=== PATIENT | male | born 1945 | race Caucasian/White ===

== ENCOUNTER 2020-01-30 00:24 | Outpatient (CLI) | payer MEDICARE, SELFPAY ==
[2020-01-30 17:00] LABS: SARS-CoV-2 RNA PCR Negative
== END 2020-01-30 00:25 | disposition home or self-care (01) ==
LOC: ANHCOVIDDT 00:25
PROVIDERS: PCP Family Medicine; Visit Provider Internal Medicine Gastroenterology
DX: Z20.828 Contact with and (suspected) exposure to other viral communicable diseases (principal); Z01.812 Encounter for preprocedural laboratory examination
CPT/HCPCS: 87635; C9803; U0003

== ENCOUNTER 2020-02-01 01:04 | Day surgery (SDC) | payer MEDICARE, SELFPAY ==
[2020-02-01 08:43] VITALS: BP 150/80; PULSE 74; RESP 20; TEMP 36.8; O2SAT 98; BMI 25.8
--- NOTE | 2020-02-01 08:49 | WPDANESEPPF ---
Anes - Initial Pre Proc Eval Procedure: Operation Date: 02/01/20 09:00 Proposed Procedures p Screening Colonoscopy - Roberto Cruz MD Date/Time: 02/01/20 08:49 Surgeon: Roberto Cruz MD Pre Op Diagnosis: Hx of Colon Polyps, Family Hx of Colon CA Patient Data Age: 74 Gender: M Height: Weight: Allergies Allergy/AdvReac Type Severity Reaction Status Date / Time No Known Allergies Allergy Unknown Verified 02/01/20 08:39 Home Medications Medication Instructions Recorded Confirmed Type aspirin 81 mg tablet,delayed 81 mg PO DAILY 07/04/19 02/01/20 History release fluticasone propionate 50 1 spray NASAL BID #54.6 ml 07/04/19 02/01/20 Rx mcg/actuation nasal spray,suspension levothyroxine 88 mcg tablet 88 mcg PO DAILY 07/04/19 02/01/20 History metformin 500 mg tablet,extended 1,500 mg PO QPM #270 tablet 08/05/19 02/01/20 Rx release 24 hr simvastatin 40 mg tablet 40 mg PO DAILY #90 tablet 10/31/19 02/01/20 Rx cyanocobalamin (vitamin B-12) 2,500 mcg SUBLINGUAL DAILY 01/25/20 02/01/20 History [Vitamin B-12] Patient hx anesthesia problems: none Family hx anesthesia problems: none PMF Family History Family History Mother Patient's mother is Father Patient's father is Social History Social History Smoking status: Never smoker Alcohol intake: never Gender identity (if verbalized by the patient): Male Sexual Orientation (if Verbalized by the Patient): Straight or Heterosexual Anes - Eval Final PreProcedure Day of Procedure 02/01/20 08:49 Patient weight: overweight Heart: regular rate and rhythm Lungs: clear to auscultation Airway: Mallampati scale class II Neurological: alert and oriented Last oral intake: >/= 8 hours ASA classification: III Emergent: no Anesthetic plan: proceed Anesthesia type and monitoring: general GIVS and standard monitoring Informed Consent: The patient's anesthetic plan and its attendant risks and benefits were discussed with the patient/family/POA. Questions were solicited and answers provided to the satisfaction of the patient/family/POA.
[2020-02-01 09:05] LABS: Glucose Point of Care 86 (65-105)
[2020-02-01] MEDS: LACTATED RINGERS 1,000 ML 150 ML IV CONT (09:06)
--- NOTE | 2020-02-01 09:12 | WPDGICN ---
Assessment and Plan Assessment and plan (1) History of colon polyps: Code(s): Z86.010 - Personal history of colonic polyps Status: Acute (2) Family history of colon cancer in father: Code(s): Z80.0 - Family history of malignant neoplasm of digestive organs Status: Acute Assessment and Plan: Patient presents today for screening colonoscopy. Plan is for high-fiber diet. Follow-up colonoscopy anticipated every 3-5 years. Further recommendations will be given after colonoscopy. GI Consult Note Consult date/time: 02/01/20 09:12 HPI: Philip Dc is a 74 year old male Seen in evaluation at the request of Dr. Franki Chan. Patient presents for colonoscopy. Patient has a prior history of having had colon polyps in the past. Family history is significant that his father had colon cancer. Patient states his current weight appetite bowel movements are normal. He denies abdominal pain. He denies bleeding. His bowel habits have been normal. Review of Systems Review of Systems: All systems reviewed & are unremarkable except as noted in HPI and below PMFSH Family History Family History Mother Patient's mother is Father Patient's father is Social History Social History Smoking status: Never smoker Alcohol intake: never Gender identity (if verbalized by the patient): Male Sexual Orientation (if Verbalized by the Patient): Straight or Heterosexual Meds Home Medications and Allergies Home Medications Medication Instructions Recorded Confirmed Type aspirin 81 mg tablet,delayed 81 mg PO DAILY 07/04/19 02/01/20 History release fluticasone propionate 50 1 spray NASAL BID #54.6 ml 07/04/19 02/01/20 Rx mcg/actuation nasal spray,suspension levothyroxine 88 mcg tablet 88 mcg PO DAILY 07/04/19 02/01/20 History metformin 500 mg tablet,extended 1,500 mg PO QPM #270 tablet 08/05/19 02/01/20 Rx release 24 hr simvastatin 40 mg tablet 40 mg PO DAILY #90 tablet 10/31/19 02/01/20 Rx cyanocobalamin (vitamin B-12) 2,500 mcg SUBLINGUAL DAILY 01/25/20 02/01/20 History [Vitamin B-12] Allergies Allergy/AdvReac Type Severity Reaction Status Date / Time No Known Allergies Allergy Unknown Verified 02/01/20 08:39 Vital Signs Vital Signs - 24 hr 02/01/20 08:43 Temperature 36.8 C Pulse Rate 74 Respiratory Rate 20 Blood Pressure 150/80 H Pulse Oximetry 98 Exam Narrative: Exam Narrative: Physical exam reveals patient to be alert. Vital signs are stable. HEENT exam unremarkable. He is anicteric. Lungs are clear to auscultation and percussion. Heart is without murmur or extra sounds. Abdominal exam bowel sounds are present soft nontender with no organomegaly. Digital external rectal exam normal.
[2020-02-01 09:48] VITALS: BP 100/62; PULSE 68; RESP 29; O2SAT 94
[2020-02-01 09:58] VITALS: BP 104/67; PULSE 66; RESP 29; O2SAT 97
[2020-02-01 10:08] VITALS: BP 127/81; PULSE 65; RESP 15; O2SAT 96
== END 2020-02-01 10:24 | disposition home or self-care (01) ==
PROVIDERS: PCP Family Medicine; Visit Provider Internal Medicine Gastroenterology
PROC: 0DJD8ZZ Inspection of Lower Intestinal Tract, Via Natural or Artificial Opening Endoscopic (ICD-10-PCS; CPT 45378; principal; 2020-02-01 09:00)
DX: Z12.11 Encounter for screening for malignant neoplasm of colon (principal); K64.8 Other hemorrhoids; Z86.010 Personal history of colon polyps; Z80.0 Family history of malignant neoplasm of digestive organs; Z79.82 Long term (current) use of aspirin
CPT/HCPCS: G0105; J2704; J7120

== ENCOUNTER 2020-06-07 07:53 | Outpatient (CLI) | payer MEDICARE, SELFPAY ==
--- NOTE | ~2020-06-07 | US_ITS ---
US arterial ankle brachial ind INDICATION: Type 2 diabetes mellitus without complications TECHNIQUE: Segmental pressures and plethysmographic and Doppler waveforms of the brachial and lower e xtremity arteries were obtained. COMPARISON: None. FINDINGS: Right and left brachial artery pressures of 133 mm Hg and 144 mm Hg, respectively, are concordant (no rmal difference <= 30 mmHg). The right ankle-brachial index (ANIVAL) is 1.15 (normal >= 0.9-1.0). The right great toe-brachial index (TBI) is 0.59 (normal >= 0.60). The left ANIVAL is 1.16. The left TBI is 0.67. IMPRESSION: 1. Mildly decreased right toe brachial index consistent with peripheral arterial disease. 2: Normal ankle-brachial indices. Reviewed, dictated and finalized at location B. IMPRESSION: 1. Mildly decreased right toe brachial index consistent with peripheral arteria l disease. 2: Normal ankle-brachial indices.
== END 2020-06-07 07:54 | disposition home or self-care (01) ==
PROVIDERS: PCP Family Medicine; Visit Provider Family Medicine
DX: E11.9 Type 2 diabetes mellitus without complications (principal); E78.2 Mixed hyperlipidemia; I73.9 Peripheral vascular disease, unspecified
CPT/HCPCS: 93922

== ENCOUNTER 2021-07-14 07:58 | Emergency (ER) | payer MEDICARE, SELFPAY ==
[2021-07-14] VITALS (14 sets, daily range): BP systolic 126–160; BP diastolic 88–98; PULSE 73–93; RESP 12–20; TEMP 36.2; O2SAT 93–98
--- NOTE | ~2021-07-14 | CT_ITS ---
EXAMINATION: CT abdomen pelvis wo con DATE: 07/14/2021 08:48 INDICATION: Right flank pain and hematuria TECHNIQUE: Computed tomography (CT) of the chest was performed without intravenous contrast. The dose -length product (DLP) was 343.35 mGy-cm. Automated exposure control and iterative reconstruction tech nique were employed. COMPARISON: None FINDINGS: Minimal dependent atelectasis is present in the lung bases. The heart size is normal. There is nodularity of the liver surface. Punctate calcifications in an otherwise normal spleen likely rep resent healed granulomatous disease. The pancreas, gallbladder, and adrenal glands are normal. The ki dneys are unremarkable. There is mild circumferential wall thickening of the urinary bladder no defin ite urolithiasis is identified. There is no hydronephrosis or hydroureter. There are changes of prost atectomy and pelvic lymph node dissection. No pathologically enlarged lymph nodes are identified. The re is no free intraperitoneal gas or evidence of bowel obstruction. The appendix is normal. There is severe lumbar spondylosis. There is a compression fracture of L2. There appears to be a right hydroce le. IMPRESSION: 1. No urolithiasis identified. Circumferential wall thickening of the urinary bladder could reflect c ystitis or chronic obstruction. Reviewed, dictated and finalized at location A. ER ROOM ATTENDANT IMPRESSION: 1. No urolithiasis identified. Circumferential wall thickening of the urinary b ladder could reflect cystitis or chronic obstruction.
--- NOTE | 2021-07-14 08:23 | ED.GENADULT ---
HPI - General Adult General Chief complaint: Urogenital-Male Stated complaint: hematuria Time Seen by Provider: 07/14/21 08:03 Source: patient, family and RN notes reviewed Limitations: no limitations History of Present Illness HPI narrative: Patient presents with hematuria and urine frequency started this morning and lower back pain more on the right side. Patient denies having similar symptoms, fever, chills, nausea, vomiting patient on baby aspirin once a day history of prostatectomy. Patient is fully vaccinated for COVID-19 including the booster dose Related Data Home Medications Medication Instructions Recorded Confirmed aspirin 81 mg tablet,delayed 81 mg PO DAILY 07/04/19 07/01/21 release cyanocobalamin (vitamin B-12) 2,500 mcg SUBLINGUAL DAILY 01/25/20 07/01/21 [Vitamin B-12] Allergies Allergy/AdvReac Type Severity Reaction Status Date / Time No Known Allergies Allergy Unknown Verified 07/14/21 08:08 Review of Systems Review of Systems: CONSTITUTIONAL: Denies fever, chills, or sweats. EYES: Denies visual changes, redness, or discharge. ENT: Denies rhinorrhea, congestion, sore throat, or otalgia. CARDIOVASCULAR: Denies chest pain, palpitations, or edema. RESPIRATORY: Denies cough or dyspnea. GASTROINTESTINAL: Denies abdominal pain, nausea, vomiting, or diarrhea. GENITOURINARY: Denies dysuria or hematuria. SKIN: Denies rash or itching. MUSCULOSKELETAL: Denies back pain, joint pain, or myalgia. NEUROLOGIC: Denies headache, numbness, or weakness. PSYCHIATRIC: Denies anxiety or depression. [facility] Past Medical History Medical History BMI 28.0-28.9,adult Cataracts, bilateral Change in stool Constipation Hypersomnia Polyp of colon Renal insufficiency (02/12/21) mild renal insufficiency with BUN 28 and creatinine 1.25 with GFR 55 on Type 2 diabetes mellitus with mild nonproliferative diabetic retinopathy without macular edema, bilateral (12/18/20) Dr. Fernandez Family History Family History Mother Patient's mother is Father Patient's father is Social History Social History Smoking status: Never smoker Alcohol intake: never Substance use: never Substance use type: does not use Gender identity (if verbalized by the patient): Male Sexual Orientation (if Verbalized by the Patient): Straight or Heterosexual Exam Narrative: General appearance: Well-developed, well-nourished Skin: Normal color Head: Normocephalic, nontraumatic Eyes: Clear conjunctiva ENT: Oropharynx normal, ears normal, nose normal Neck: Supple, nontender Chest and respiratory: Airway patent, no respiratory distress, no accessory muscle use Heart: Regular rate/rhythm Abdomen: Soft, nontender, no organomegaly, quiet bowel sounds Vascular: Normal peripheral pulses, normal capillary refill. Musculoskeletal: Normal range of motion, nontender back Neurologic: Alert and oriented ?3, SCIENCE LIAISON is normal as tested, no gross motor deficit Course Course Emergency Course: Stable Vital Signs Vital signs: Vital Signs Temperature 36.2 C L 07/14/21 08:06 Pulse Rate 93 07/14/21 08:06 Respiratory Rate 16 07/14/21 08:06 Pulse Oximetry 96 07/14/21 08:06 Temperature 36.2 C L 07/14/21 08:06 Pulse Rate 73 07/14/21 09:08 Respiratory Rate 14 07/14/21 09:00 Blood Pressure 141/88 H 07/14/21 09:08 Pulse Oximetry 94 07/14/21 09:08 Medical Decision Making MDM Narrative Medical decision making narrative: Hematuria. Labs, CT abdomen pel
[2021-07-14 08:29] LABS: Basophils Percent Auto 0.5 % (0.2-1.2); Eosinophils Absolute Auto 0.3 K/mm3 (0-0.3); Eosinophils Percent Auto 3.5 % (0-4.4); Hemoglobin 15.5 g/dL (14.0-18.0); Immature Granulocyte Absolute 0.02 K/mm3 (0.00-0.031); Immature Granulocyte Percent A 0.3 % (0-0.5); Lymphocytes Percent Auto 18.3 % (18.3-44.2); Mean Corpuscular HGB Conc 33.7 g/dl (32-36); Mean Corpuscular Volume 98.1 fl (80-100); Mean Platelet Volume 10.8 fl (7.4-10.4); Monocytes Absolute Auto 1.2 K/mm3 (0.1-0.6); Monocytes Percent Auto 15.4 % (2.6-8.5); Neutrophils Absolute Auto 4.8 K/mm3 (1.3-6.7); Platelet Count Result 264 k/mm3 (150-375); Red Blood Count 4.69 M/mm3 (4.6-6.20); Red Cell Distribution Width 13.9 % (11.5-14.5); White Blood Count 7.7 K/mm3 (4.5-10.0)
[2021-07-14 08:38] LABS: Alanine Aminotransferase 19 U/L (4-50); Albumin Level 4.3 g/dL (3.5-5.1); Alkaline Phosphatase 61 U/L (38-126); Anion Gap 7 mmol/L (8-16); Aspartate Amino Transferase 28 U/L (17-59); Bilirubin,Total 0.9 mg/dL (0.2-1.3); Blood Urea Nitrogen 19 mg/dL (9-20); Calcium 9.4 mg/dL (8.4-10.2); Carbon Dioxide 27 mmol/L (22-30); Chloride 105 mmol/L (98-107); Estimated CRCL calculation 52 ml/min; Estimated Glomerular Filt Rate > 60; Glucose 124 mg/dL (65-110); Potassium 4.3 mmol/L (3.4-5.0); Sodium 139 mmol/L (137-145)
[2021-07-14 08:43] LABS: Add Urine Microscopic? YES; Appearance Urine Turbid (Clear); Bilirubin Urine Negative (Negative); Blood Urine 3+ (Negative); Color Urine Red (Yellow); Glucose Urine UA 1+ mg/dL (Negative); Ketones Urine Trace mg/dL (Negative); Leukocyte Esterase Ur Negative LEU/UL (Negative); Nitrate Urine Negative (Negative); Protein Urine 2+ mg/dL (Negative); RBC Urine >75 /hpf (0-2); Specific Grav Ur 1.021 (1.001-1.035); Urobilinogen Urine Negative mg/dL (<2.0); WBC Clumps Urine Present /HPF; WBC Urine >75 /hpf
--- NOTE | 2021-07-14 08:46 | PC.NURSE ---
Pt to CT.
--- NOTE | 2021-07-14 09:34 | PC.NURSE ---
Dr. Davidson at bedside to discuss results with pt.
== END 2021-07-14 09:52 | disposition home or self-care (01) ==
PROVIDERS: Emergency Provider Emergency Medicine; PCP Family Medicine
DX: N39.0 Urinary tract infection, site not specified (principal); E11.3293 Type 2 diabetes mellitus with mild nonproliferative diabetic retinopathy without macular edema, bilateral; Z79.82 Long term (current) use of aspirin; Z86.010 Personal history of colon polyps; H26.9 Unspecified cataract; K74.60 Unspecified cirrhosis of liver; Z79.84 Long term (current) use of oral hypoglycemic drugs
CPT/HCPCS: 36415; 51700; 74176; 80053; 81001; 85025; 87077; 87086; 87186; 99283; 99284

== ENCOUNTER 2021-07-14 14:36 | Emergency (ER) | payer MEDICARE, SELFPAY ==
[2021-07-14 14:41] VITALS: BP 168/94; PULSE 105; RESP 16; TEMP 37; O2SAT 99
--- NOTE | 2021-07-14 15:26 | ED.GENADULT ---
HPI - General Adult General Chief complaint: Urogenital-Male Stated complaint: uti Time Seen by Provider: 07/14/21 14:49 Source: patient and family Mode of arrival: ambulatory Limitations: no limitations History of Present Illness HPI narrative: Patient came to the emergency room with inability to urinate for the last 6 hours. Patient was seen earlier today in our emergency room and was discharged with a diagnosis of urinary tract infection and hematuria. History of prostatectomy. Currently on baby aspirin once a day. Related Data Home Medications Medication Instructions Recorded Confirmed aspirin 81 mg tablet,delayed 81 mg PO DAILY 07/04/19 07/01/21 release cyanocobalamin (vitamin B-12) 2,500 mcg SUBLINGUAL DAILY 01/25/20 07/01/21 [Vitamin B-12] Allergies Allergy/AdvReac Type Severity Reaction Status Date / Time No Known Allergies Allergy Unknown Verified 07/14/21 08:08 Review of Systems Review of Systems: CONSTITUTIONAL: Denies fever, chills, or sweats. EYES: Denies visual changes, redness, or discharge. ENT: Denies rhinorrhea, congestion, sore throat, or otalgia. CARDIOVASCULAR: Denies chest pain, palpitations, or edema. RESPIRATORY: Denies cough or dyspnea. GASTROINTESTINAL: Denies abdominal pain, nausea, vomiting, or diarrhea. GENITOURINARY: Denies dysuria or hematuria. SKIN: Denies rash or itching. MUSCULOSKELETAL: Denies back pain, joint pain, or myalgia. NEUROLOGIC: Denies headache, numbness, or weakness. PSYCHIATRIC: Denies anxiety or depression. [facility] Past Medical History Medical History BMI 28.0-28.9,adult Cataracts, bilateral Change in stool Constipation Hypersomnia Polyp of colon Renal insufficiency (02/12/21) mild renal insufficiency with BUN 28 and creatinine 1.25 with GFR 55 on Type 2 diabetes mellitus with mild nonproliferative diabetic retinopathy without macular edema, bilateral (12/18/20) Dr. Fernandez Family History Family History Mother Patient's mother is Father Patient's father is Social History Social History Smoking status: Never smoker Alcohol intake: never Substance use: never Substance use type: does not use Gender identity (if verbalized by the patient): Male Sexual Orientation (if Verbalized by the Patient): Straight or Heterosexual Exam Narrative: General appearance: Well-developed, well-nourished, restless, anxious Skin: Normal color Head: Normocephalic, nontraumatic Eyes: Clear conjunctiva ENT: Oropharynx normal, ears normal, nose normal Neck: Supple, nontender Chest and respiratory: Airway patent, no respiratory distress, no accessory muscle use Heart: Regular rate/rhythm Abdomen: Soft, severe tenderness suprapubic, slightly distended Vascular: Normal peripheral pulses, normal capillary refill. Musculoskeletal: Normal range of motion, nontender back Neurologic: Alert and oriented ?3, NATURAL SCIENCES DEPARTMENT CHAIR is normal as tested, no gross motor deficit Course Course Emergency Course: Improving Vital Signs Vital signs: Vital Signs Temperature 37.0 C 07/14/21 14:41 Pulse Rate 105 H 07/14/21 14:41 Respiratory Rate 16 07/14/21 14:41 Blood Pressure 168/94 H 07/14/21 14:41 Pulse Oximetry 99 07/14/21 14:41 Temperature 37.0 C 07/14/21 14:41 Pulse Rate 105 H 07/14/21 14:41 Respiratory Rate 16 07/14/21 14:41 Blood Pressure 168/94 H 07/14/21 14:41 Pulse Oximetry 99 07/14/21 14:41 Medical Decision Making MDM Narrative Medical decision making narrative:
[2021-07-14 17:16] VITALS: BP 142/97; PULSE 88; RESP 16; O2SAT 97
== END 2021-07-14 17:18 | disposition home or self-care (01) ==
PROVIDERS: Emergency Provider Emergency Medicine; PCP Family Medicine
DX: R33.9 Retention of urine, unspecified (principal); E11.3293 Type 2 diabetes mellitus with mild nonproliferative diabetic retinopathy without macular edema, bilateral; H26.9 Unspecified cataract; Z90.79 Acquired absence of other genital organ(s); Z79.84 Long term (current) use of oral hypoglycemic drugs; Z86.010 Personal history of colon polyps
CPT/HCPCS: 51700; 99283

== ENCOUNTER 2021-07-15 16:20 | Emergency (ER) | payer MEDICARE, SELFPAY ==
[2021-07-15 17:11] VITALS: BP 203/108; PULSE 114; RESP 14; TEMP 37.1; O2SAT 95
--- NOTE | 2021-07-15 17:38 | ED.MALEGU ---
HPI - Male Genitourinary General Chief complaint: Urogenital-Male Stated complaint: Catheter issues. Time Seen by Provider: 07/15/21 17:15 Source: patient and family Mode of arrival: ambulatory Limitations: no limitations History of Present Illness HPI Narrative: Patient presented to the ED because of urine leaking around the Gaitan catheter. Not draining as usual. In the last 2 to 4 hours prior to arrival to the emergency room. Patient came to our emergency room yesterday and was diagnosed of urinary tract infection and hematuria. Patient came back 6-hour later with urine retention, three-way Gaitan catheter was placed, irrigated and then discharged home with clear urine output. Related Data Home Medications Medication Instructions Recorded Confirmed aspirin 81 mg tablet,delayed 81 mg PO DAILY 07/04/19 07/01/21 release cyanocobalamin (vitamin B-12) 2,500 mcg SUBLINGUAL DAILY 01/25/20 07/01/21 [Vitamin B-12] Allergies Allergy/AdvReac Type Severity Reaction Status Date / Time No Known Allergies Allergy Unknown Verified 07/15/21 18:10 Review of Systems Review of Systems: CONSTITUTIONAL: Denies fever, chills, or sweats. EYES: Denies visual changes, redness, or discharge. ENT: Denies rhinorrhea, congestion, sore throat, or otalgia. CARDIOVASCULAR: Denies chest pain, palpitations, or edema. RESPIRATORY: Denies cough or dyspnea. GASTROINTESTINAL: Denies abdominal pain, nausea, vomiting, or diarrhea. GENITOURINARY: Denies dysuria or hematuria. SKIN: Denies rash or itching. MUSCULOSKELETAL: Denies back pain, joint pain, or myalgia. NEUROLOGIC: Denies headache, numbness, or weakness. PSYCHIATRIC: Denies anxiety or depression. [facility] Past Medical History Medical History BMI 28.0-28.9,adult Cataracts, bilateral Change in stool Constipation Hypersomnia Polyp of colon Renal insufficiency (02/12/21) mild renal insufficiency with BUN 28 and creatinine 1.25 with GFR 55 on Type 2 diabetes mellitus with mild nonproliferative diabetic retinopathy without macular edema, bilateral (12/18/20) Dr. Fernandez Family History Family History Mother Patient's mother is Father Patient's father is Social History Social History Smoking status: Never smoker Alcohol intake: never Substance use: never Substance use type: does not use Gender identity (if verbalized by the patient): Male Sexual Orientation (if Verbalized by the Patient): Straight or Heterosexual Exam Narrative: General appearance: Well-developed, well-nourished Skin: Normal color Head: Normocephalic, nontraumatic Eyes: Clear conjunctiva ENT: Oropharynx normal, ears normal, nose normal Neck: Supple, nontender Chest and respiratory: Airway patent, no respiratory distress, no accessory muscle use Heart: Regular rate/rhythm Abdomen: Soft, tender suprapubic, no organomegaly, quiet bowel sounds Vascular: Normal peripheral pulses, normal capillary refill. Musculoskeletal: Normal range of motion, nontender back Neurologic: Alert and oriented ?3, TECHNOLOGY SPECIALIST is normal as tested, no gross motor deficit Urinary Catheter: Urinary Catheter: urine with clots and other (The Gaitan catheter was not draining, aspiration using a strange, showed little blood clots then the draining started flowing) Course Course Emergency Course: Improving Vital Signs Vital signs: Vital Signs Temperature 37.1 C 07/15/21 17:11 Pulse Rate 114 H 07/15/21 17:11 Respiratory Rate 14 07/15/21 17:11 Blood Pressu
[2021-07-15 18:10] VITALS: BP 145/76; PULSE 87; RESP 16; O2SAT 96
[2021-07-15 19:14] VITALS: BP 142/86; PULSE 83; RESP 16; O2SAT 97
== END 2021-07-15 19:14 | disposition home or self-care (01) ==
LOC: ANHED 18:38
PROVIDERS: Emergency Provider Emergency Medicine; PCP Family Medicine
DX: R33.9 Retention of urine, unspecified (principal); T83.091A Other mechanical complication of indwelling urethral catheter, initial encounter; E11.3293 Type 2 diabetes mellitus with mild nonproliferative diabetic retinopathy without macular edema, bilateral; Z86.010 Personal history of colon polyps; H26.9 Unspecified cataract; Z79.82 Long term (current) use of aspirin; Z79.84 Long term (current) use of oral hypoglycemic drugs
CPT/HCPCS: 99282

== ENCOUNTER 2021-11-23 06:45 | Emergency (ER) | payer MEDICARE, SELFPAY ==
[2021-11-23 06:54] VITALS: BP 152/80; PULSE 86; RESP 15; TEMP 36.2; O2SAT 97
[2021-11-23 06:59] VITALS: PULSE 81; RESP 19; O2SAT 96
--- NOTE | 2021-11-23 07:13 | ED.MALEGU ---
HPI - Male Genitourinary General Chief complaint: Urogenital-Male Stated complaint: uti Time Seen by Provider: 11/23/21 06:57 Source: patient History of Present Illness HPI Narrative: Patient presents with hematuria and dysuria. Patient reports his symptoms started yesterday and are a lot worse this morning so he came to the ER for evaluation. Reports a history of UTI several months ago and presented very similar to this. He denies any other abdominal pain nausea, vomiting, acute change in chronic back pain, diarrhea. Related Data Home Medications Medication Instructions Recorded Confirmed aspirin 81 mg tablet,delayed 81 mg PO DAILY 07/04/19 07/01/21 release cyanocobalamin (vitamin B-12) 2,500 mcg SUBLINGUAL DAILY 01/25/20 07/01/21 [Vitamin B-12] Allergies Allergy/AdvReac Type Severity Reaction Status Date / Time No Known Allergies Allergy Unknown Verified 07/15/21 18:10 Review of Systems Review of Systems: CONSTITUTIONAL: Denies fever, chills, or sweats. EYES: Denies visual changes, redness, or discharge. ENT: Denies rhinorrhea, congestion, sore throat, or otalgia. CARDIOVASCULAR: Denies chest pain, palpitations, or edema. RESPIRATORY: Denies cough or dyspnea. GASTROINTESTINAL: Denies abdominal pain, nausea, vomiting, or diarrhea. GENITOURINARY: Reports hematuria and dysuria SKIN: Denies rash or itching. MUSCULOSKELETAL: Denies back pain, joint pain, or myalgia. NEUROLOGIC: Denies headache, numbness, dizziness, or weakness. PSYCHIATRIC: Denies anxiety or depression. All systems reviewed & are unremarkable except as noted in HPI and below [facility] Past Medical History Medical History BMI 28.0-28.9,adult BMI 29.0-29.9,adult Cataracts, bilateral Change in stool Chronic low back pain without sciatica Constipation Hypersomnia Polyp of colon Renal insufficiency (02/12/21) mild renal insufficiency with BUN 28 and creatinine 1.25 with GFR 55 on Type 2 diabetes mellitus with mild nonproliferative diabetic retinopathy without macular edema, bilateral (12/18/20) Dr. Fernandez UTI (urinary tract infection) Family History Family History Mother Patient's mother is Father Patient's father is Social History Social History Smoking status: Never smoker Alcohol intake: never Substance use: never Substance use type: does not use Gender identity (if verbalized by the patient): Male Sexual Orientation (if Verbalized by the Patient): Straight or Heterosexual Exam Narrative: GENERAL: Well-appearing, well-nourished, and in no acute distress. HEAD: Normocephalic, atraumatic. EYES: PERRLA and EOMI. ENT: Nares clear, no rhinorrhea or epistaxis. Mucous membranes moist. NECK: Supple. No masses. No JVD ABDOMEN: Soft, nontender, nondistended. EXTREMITIES: Normal range of motion. No edema. SKIN: Warm, dry, no rash. NEURO: No focal deficits. Alert and oriented x3. PSYCH: Normal mood and affect. Course Reevaluation(s) Reevaluation #1: Patient resting comfortable results and plan reviewed with patient. Patient comfortable outpatient plan. Date: 11/23/21 Time: 07:57 Vital Signs Vital signs: Vital Signs Temperature 36.2 C L 11/23/21 06:54 Pulse Rate 86 11/23/21 06:54 Respiratory Rate 15 11/23/21 06:54 Blood Pressure 152/80 H 11/23/21 06:54 Pulse Oximetry 97 11/23/21 06:54 Temperature 36.2 C L 11/23/21 06:54 Pulse Rate 76 11/23/21 08:13 Respiratory Rate 16 11/23/21 08:13 Blood Pressure 132/98 H 11/23/21 08:13 Pulse Oximetry 95 11/23/21 08:13 MDM - Male Genitourinary MDM Narrative Medical decision making narrative: H&P as above, vss, pt looks clinically well, exam with nonacute abdomen, labs with UA concerning for infection, additional labs/img considered, sympto
--- NOTE | 2021-11-23 07:29 | PC.NURSE ---
Took report from mohinder James comfortable at this time.
[2021-11-23 07:47] LABS: Add Urine Microscopic? YES; Appearance Urine Cloudy (Clear); Bacteria Urine Trace /hpf; Bilirubin Urine Negative (Negative); Blood Urine 2+ (Negative); Color Urine Yellow (Yellow); Glucose Urine UA Negative (Negative); Ketones Urine Negative (Negative); Leukocyte Esterase Ur 2+ LEU/UL (Negative); Mucus Urine Few /lpf; Nitrate Urine Negative (Negative); Protein Urine 1+ mg/dL (Negative); RBC Urine 21-50 /hpf (0-2); Specific Grav Ur 1.025 (1.001-1.035); Urobilinogen Urine Negative mg/dL (<2.0); WBC Urine >75 /hpf
[2021-11-23 08:13] VITALS: BP 132/98; PULSE 76; RESP 16; O2SAT 95
== END 2021-11-23 08:15 | disposition home or self-care (01) ==
PROVIDERS: Emergency Provider Emergency Medicine; PCP Family Medicine
DX: N39.0 Urinary tract infection, site not specified (principal); E11.319 Type 2 diabetes mellitus with unspecified diabetic retinopathy without macular edema; N28.9 Disorder of kidney and ureter, unspecified; Z86.010 Personal history of colon polyps; Z79.84 Long term (current) use of oral hypoglycemic drugs; Z79.82 Long term (current) use of aspirin
CPT/HCPCS: 81001; 87077; 87086; 87186; 99283

== ENCOUNTER 2022-02-21 11:21 | Outpatient (CLI) | payer MEDICARE, SELFPAY ==
--- NOTE | 2022-02-21 11:30 | ECG_ITS ---
Measurements Intervals Jal Rate: 80 P: 24 OR: 116 QRS: -17 QRSD: 97 T: 62 QT: 354 QTc: 409 Interpretive Statements SINUS RHYTHM WITH SHORT OR INTERVAL INCOMPLETE RIGHT BUNDLE BRANCH BLOCK LOW QRS VOLTAGE IN LIMB LEADS INCOMPLETE RIGHT BUNDLE BRANCH BLOCK BASELINE ARTIFACT- I, II, III, AVR, AVL, AVF BORDERLINE ECG Electronically Signed On 02-21-2022 15:31:30 CDT by Nishant Jeff D.O.
== END 2022-02-21 11:22 | disposition home or self-care (01) ==
LOC: ANHSURGERY 11:24
PROVIDERS: PCP Family Medicine; Visit Provider Urology
DX: E78.2 Mixed hyperlipidemia (principal); I45.19 Other right bundle-branch block
CPT/HCPCS: 93005

== ENCOUNTER 2022-02-27 01:12 | Day surgery (SDC) | payer MEDICARE, SELFPAY ==
--- NOTE | 2022-02-05 08:13 | PM.HPGS ---
History of Present Illness History of Present Illness Consent: Risks, benefits, and alternatives have been discussed and questions answered. Patient agrees to proceed with procedure. Chief complaint: Split Urinary Stream Narrative: Philip Dc is a 76 year old male Who is status post open radical prostatectomy at [facility] in 1998. Recently he has developed obstructive voiding symptoms in a split urinary stream refractory to attempts at medical management. This is highly suggestive of urethral stricture and he presents for cystoscopy with urethral dilatation. He is aware the risk of this including, but not limited to, adverse cardiopulmonary events, postoperative hematuria, persistent irritable and/or obstructive voiding symptoms. Review of Systems Cardiovascular: Cardiovascular: Denies chest pain, Denies lightheadedness, Denies palpitations and Denies dyspnea Respiratory: Respiratory: Denies dyspnea Gastrointestinal: Gastrointestinal: Denies diarrhea, Denies nausea and Denies vomiting Genitourinary: Genitourinary: Denies hematuria and Denies dysuria Endocrine: Endocrine: Denies palpitations [facility] Past Medical History Medical History (Updated 02/05/22 @ 08:15 by Simon Ocampo MD) Alcoholism in recovery quit drinking 07/18/1983. BMI 28.0-28.9,adult BMI 29.0-29.9,adult Cataracts, bilateral Change in stool Chronic low back pain without sciatica Cirrhosis of liver (~06/2021) nodularity of the surface of the liver on CT of the abdomen and pelvis on 07/14/2021 with past history of alcoholism and normal liver function currently. Constipation Hypersomnia Overweight (BMI 25.0-29.9) Polyp of colon Renal insufficiency (02/12/21) mild renal insufficiency with BUN 28 and creatinine 1.25 with GFR 55 on . Normal renal function 01/20/2022 with BUN 18, creatinine 1.02, GFR 70 with urinalysis normal and urine microalbumin ratio of 9 on 01/20/2022. Type 2 diabetes mellitus with mild nonproliferative diabetic retinopathy without macular edema, bilateral (12/18/20) Dr. Fernandez UTI (urinary tract infection) Family History Family History Mother Patient's mother is Father Patient's father is Social History Social History Smoking status: Never smoker Alcohol intake: never Substance use: never Substance use type: does not use Gender identity (if verbalized by the patient): Male Sexual Orientation (if Verbalized by the Patient): Straight or Heterosexual Meds Home Medications and Allergies Home Medications Medication Instructions Recorded Confirmed Type aspirin 81 mg tablet,delayed 81 mg PO DAILY 07/04/19 01/27/22 History release (Adult Aspirin Regimen) cyanocobalamin (vitamin B-12) 2,500 mcg sublingual DAILY 01/25/20 01/27/22 History 2,500 mcg sublingual tablet (Vitamin B-12) azelastine 205.5 mcg (0.15 %) 1 spray intranasal BID PRN 12/17/20 01/27/22 Rx nasal spray allergy #30 mL fluticasone propionate 50 1 spray intranasal BID #54.6 mL 02/25/21 01/27/22 Rx mcg/actuation nasal spray,suspension phenazopyridine 200 mg tablet 200 mg PO TID PRN pain 6 doses #6 07/14/21 01/27/22 Rx (Pyridium) tabs oxybutynin chloride 5 mg tablet 5 mg PO BID PRN bladder spasms #60 07/18/21 01/27/22 Rx tabs simvastatin 40 mg tablet 40 mg PO DAILY #90 tabs 12/22/21 01/27/22 Rx levothyroxine 88 mcg tablet 88 mcg PO DAILY #90 tabs 12/24/21 01/27/22 Rx metformin 500 mg tablet,extended 1,000 mg PO QPM #180 tabs 01/20/22 01/27/22 Rx release 24 hr Allergies Allergy/AdvReac Type Severity Reaction Status Date / Time No Known Allergies Allergy Unknown Verified 07/15/21 18:10 Exam Const: General: no acute distress Resp: Effort & Inspection: normal respiratory effort GI: Inspection: non-distended GI Palp: No abdominal tenderness
--- NOTE | 2022-02-20 13:28 | PC.NURSE ---
Report to the Outpatient Waiting Room, entrance under the green pavilion located off [facility], at time _1200 on date _02/27/22 . OR Time: __2:00PM . - You and your visitor will be asked a series of questions to screen for COVID 19 for your protection. - Only one visitor is allowed at this time. - The patient visitor is requested to leave or wait in car when not with patient. - A mask is required within the hospital. Patients may have clear liquids (water, carbonated beverages, clear teas, apple juice) until 3 hours prior to surgery with a maximum of 20 ounces. - No food from midnight until time of surgery - Infants may have breast milk until 4 hours before surgery, infant formula 6 hours prior to surgery. - Children will be allowed to drink immediately following surgery. If applicable, please bring a bottle or sippy cup to assist with drinking. Juice, water, soda, and popsicles are readily available. For infants on formula, please bring formula the day of surgery. Pacifiers are allowed. Take the following medications with a SIP of water the morning of surgery: ___LEVOTHYROXINE Medications to discontinue per physician ALL VITAMINS AND SUPPLEMENTS 3 DAYS PRE OP Date to take last dose___02/23/22 Please no make-up, nail croatian, hairspray, perfume, deodorant, or body powder the day of surgery. No jewelry (including any body piercings) or valuables the day of surgery, leave them at home. Please take a shower or bath the night before, or the morning of, surgery with an antibacterial soap. Wear comfortable, loose fitting clothing. Children are encouraged to wear pajamas. - Jewelry must be removed prior to entering the operating room. Rings and piercings that are not removed may be cut off. - The hospital will not accept responsibility for valuables. - Please leave all valuables, including medications, at home the day of surgery. If you are going home after surgery, a licensed otr tanker truck driver must drive you home. - NO public transportation without another adult. - We recommend that an adult stay with you for 24 hours following discharge. - We also recommend that you do not drive, make important decision, drink alcoholic beverages, or take any drugs that were not prescribed by your health care provider for at least 24 hours after your discharge time. For Pediatric surgeries, we recommend two adults accompany the child home (only one inside the building at this time). Follow any additional instructions given to you from your surgeon. If you or anyone in your household have experienced Covid symptoms in the past week, please notify your surgeon or the nurse liaison at the phone number below for possible testing. Telephone instructions given to _PATIENT and asked if any additional questions and then verbalized understanding. Patient advised to call surgeon office or pre surgery nurse liaison [phone] if any additional questions.
[2022-02-20 13:36] VITALS: BMI 28.7
--- NOTE | 2022-02-27 06:55 | WPDHPUPDATE1 ---
History and Physical Update Update Date/Time: 02/27/22 06:55 History and Physical has been reviewed, including an updated exam of the patient. There are NO changes in the patient's condition. Risks, benefits, and alternatives have been discussed and questions answered. Patient agrees to proceed with procedure.
[2022-02-27 10:07] VITALS: BP 134/75; PULSE 85; RESP 16; TEMP 36.4; O2SAT 97
[2022-02-27] MEDS: LACTATED RINGERS 1,000 ML 30 ML IV CONT (10:37)
[2022-02-27 10:43] LABS: Glucose Point of Care 105 mg/dl (65-105)
--- NOTE | 2022-02-27 11:42 | WPDANESEPPF ---
Anes - Initial Pre Proc Eval Procedure: Operation Date: 02/27/22 14:00 Proposed Procedures p Cystoscopy, Urethral Dilatation - Simon Ocampo MD Date/Time: 02/27/22 11:42 Surgeon: Simon Ocampo MD Pre Op Diagnosis: Split Urinary Stream Patient Data Age: 76 Gender: M Height: 1.78 m Weight: 89.4 kg Last Vital Signs Temp 36.4 C L 02/27/22 10:07 Pulse 85 02/27/22 10:07 Resp 16 02/27/22 10:07 BP 134/75 02/27/22 10:07 Pulse Ox 97 02/27/22 10:07 O2 Del Method Room Air 02/27/22 10:07 Allergies Allergy/AdvReac Type Severity Reaction Status Date / Time No Known Allergies Allergy Unknown Verified 02/27/22 10:26 Home Medications Medication Instructions Recorded Confirmed Type cyanocobalamin (vitamin B-12) 2,500 mcg sublingual DAILY 01/25/20 02/27/22 History 2,500 mcg sublingual tablet (Vitamin B-12) azelastine 205.5 mcg (0.15 %) 1 spray intranasal BID PRN 12/17/20 02/27/22 Rx nasal spray allergy #30 mL levothyroxine 88 mcg tablet 88 mcg PO DAILY #90 tabs 12/24/21 02/27/22 Rx metformin 500 mg tablet,extended 1,000 mg PO QPM #180 tabs 01/20/22 02/27/22 Rx release 24 hr fluticasone propionate 50 1 spray intranasal PRN PRN Allergy 02/20/22 02/27/22 History mcg/actuation nasal Symptoms spray,suspension simvastatin 40 mg tablet 40 mg PO HS 02/20/22 02/27/22 History vitamins A,C,D-ooht-eovpwj 2,148 2 tablet PO QNOON 02/20/22 02/27/22 History mcg-113 mg-45 mg-17.4 mg tablet (Eye Multivitamin) Laboratory Tests 02/27/22 10:40 POC Capillary Glucose 105 mg/dl mg/dl (65-105) Patient hx anesthesia problems: none Family hx anesthesia problems: none Results Review: All pre-operative results and documents have been reviewed as part of the pre-operative evaluation. [facility] Past Medical History Medical History (Updated 02/05/22 @ 08:15 by Simon Ocampo MD) Alcoholism in recovery quit drinking 07/18/1983. BMI 28.0-28.9,adult BMI 29.0-29.9,adult Cataracts, bilateral Change in stool Chronic low back pain without sciatica Cirrhosis of liver (~06/2021) nodularity of the surface of the liver on CT of the abdomen and pelvis on 07/14/2021 with past history of alcoholism and normal liver function currently. Constipation Hypersomnia Overweight (BMI 25.0-29.9) Polyp of colon Renal insufficiency (02/12/21) mild renal insufficiency with BUN 28 and creatinine 1.25 with GFR 55 on . Normal renal function 01/20/2022 with BUN 18, creatinine 1.02, GFR 70 with urinalysis normal and urine microalbumin ratio of 9 on 01/20/2022. Type 2 diabetes mellitus with mild nonproliferative diabetic retinopathy without macular edema, bilateral (12/18/20) Dr. Fernandez UTI (urinary tract infection) Family History Family History Mother Patient's mother is Father Patient's father is Social History Social History Smoking status: Never smoker Alcohol intake: never Alcohol use details: RECOVERING ALCOHOLIC-LAST DRINK 1982 Substance use: never Substance use type: does not use Living arrangements: with family Gender identity (if verbalized by the patient): Male Sexual Orientation (if Verbalized by the Patient): Straight or Heterosexual Spiritual care concerns: No Anes - Eval Final PreProcedure Day of Procedure 02/27/22 11:42 Patient weight: overweight Heart: regular rate and rhythm Lungs: clear to auscultation Airway: Mallampati scale class II Neurological: alert and oriented Last oral intake: >/= 8 hours ASA classification: III Emergent: no Anesthetic plan: proceed Anesthesia type and monitoring: general LMA and standard monitoring Results Review: All pre-operative results and documents have been reviewed as part of the pre-operative evaluation. Informed Consent: The patient's anes
[2022-02-27] MEDS: ceFAZolin 2 GM/D5W 50 ML 2 GM/50 ML BAG IVPB (12:45)
[2022-02-27] MEDS: LIDOCAINE HCL 2% GEL UROJET 10 ML PKG MUCOUS MEM (12:55)
[2022-02-27 13:10] VITALS: BP 140/79; PULSE 82; RESP 16; O2SAT 96
--- NOTE | 2022-02-27 13:12 | W.PM.PROC2 ---
Procedure Note - Detailed Date of Procedure 02/27/22 Pre-op Diagnosis Split urinary stream, probable urethral stricture Post-op Diagnosis Other (Bladder neck contracture) Procedure Performed Cystoscopy, dilatation [facility] Surgeon Simon Ocampo MD Description of Procedure The patient was brought to the operative suite where he was prepped and draped in a routine sterile fashion while in a dorsal lithotomy position after the uneventful induction of a general LMA anesthetic. Cystoscopy was undertaken with a []cystoscope. There were no urethral strictures but a constricting bladder neck. The prostatic urethral estimated length was 1.5cm with evidence of prior TURP. There was no obstruction of the prostatic urethra with no median lobe enlargement. The bladder itself was endoscopically normal without foreign body or neoplasm. The bladder mucosa was without hyperemia. There was a single orthotopic ureteral orifice bilaterally with clear efflux of urine. Using the Anam sounds I dilated the urethra and bladder neck from 12F -> 30F. The bladder was emptied and the patient was taken to the recovery room in good condition Pathology None sent Complications No immediate complications Condition Stable Disposition PACU
[2022-02-27 13:15] LABS: Glucose Point of Care 111 mg/dl (65-105)
[2022-02-27 13:40] VITALS: BP 147/82; PULSE 74; RESP 16
== END 2022-02-27 14:00 | disposition home or self-care (01) ==
PROVIDERS: PCP Family Medicine; Visit Provider Urology
PROC: 0T7D8ZZ Dilation of Urethra, Via Natural or Artificial Opening Endoscopic (ICD-10-PCS; CPT 52281; principal; 2022-02-27 14:00)
DX: R39.13 Splitting of urinary stream (principal); N32.0 Bladder-neck obstruction; N35.919 Unspecified urethral stricture, male, unspecified site; E11.3293 Type 2 diabetes mellitus with mild nonproliferative diabetic retinopathy without macular edema, bilateral; K74.60 Unspecified cirrhosis of liver; F10.21 Alcohol dependence, in remission; H26.9 Unspecified cataract; N28.9 Disorder of kidney and ureter, unspecified; Z79.84 Long term (current) use of oral hypoglycemic drugs; Z90.79 Acquired absence of other genital organ(s)
CPT/HCPCS: 53605; 82948; A9270; J0690; J2704; J3010; J7120

== ENCOUNTER 2023-08-01 10:27 | Emergency (ER) | payer MEDICARE, SELFPAY ==
[2023-08-01 10:28] VITALS: BP 161/85; PULSE 97; RESP 20; TEMP 36.3; O2SAT 97
[2023-08-01 11:17] VITALS: BP 142/92; PULSE 76; RESP 18; TEMP 36.6; O2SAT 97
[2023-08-01 11:41] LABS: Appearance Urine Turbid (Clear); Bacteria Urine None Seen /hpf; Bilirubin Urine 1+ (Negative); Blood Urine 3+ (Negative); Budding Yeast Urine Present /hpf; Color Urine Dark Yellow (Yellow); Glucose Urine UA Negative (Negative); Ketones Urine Trace mg/dL (Negative); Leukocyte Esterase Ur Trace LEU/UL (Negative); Mucus Urine Present /lpf; Nitrate Urine Negative (Negative); Protein Urine 2+ mg/dL (Negative); RBC Urine >100 /hpf (0-2); Specific Grav Ur 1.034 (1.001-1.035); Squamous Epithelial Cell Urine None seen /hpf (Few); WBC Urine 0-5 /hpf
[2023-08-01 11:45] LABS: Add Urine Microscopic? YES
--- NOTE | 2023-08-01 12:02 | ED.GENADULT ---
HPI - General Adult General Chief complaint: Urogenital-Male Stated complaint: uti Time Seen by Provider: 08/01/23 11:08 Source: patient Mode of arrival: ambulatory Limitations: no limitations History of Present Illness HPI narrative: this is an 78-year-old male who presents to the ED with chief complaint of hematuria beginning this morning. Reports the past couple of days he noticed a couple of blood clots in his briefs. Denies any dysuria, flank pain, fevers chills, abdominal pain, problems with bowel movements, rectal pain. States he is otherwise completely asymptomatic. He states that when he urinated in the department today he did not notice any more blood. states he has followed with Dr. Ocampo in the past but is unsure if he has ever had a scope. Related Data Home Medications Medication Instructions Recorded Confirmed cyanocobalamin (vitamin B-12) 2,500 mcg sublingual DAILY 01/25/20 03/10/23 2,500 mcg sublingual tablet (Vitamin B-12) vitamins A,C,E-fccf-yuvuak 2,148 2 tablet PO QNOON 02/20/22 03/10/23 mcg-113 mg-45 mg-17.4 mg tablet (Eye Multivitamin) Allergies Allergy/AdvReac Type Severity Reaction Status Date / Time No Known Allergies Allergy Unknown Verified 08/01/23 10:59 Review of Systems Review of Systems: All systems as dictated in [facility] Past Medical History Medical History (Updated 08/01/23 @ 12:08 by Omar Tipton PA-C) Acute bronchitis Alcoholism in recovery quit drinking 07/18/1983. BMI 28.0-28.9,adult BMI 29.0-29.9,adult Cataracts, bilateral Change in stool Chronic low back pain without sciatica Cirrhosis of liver (~06/2021) nodularity of the surface of the liver on CT of the abdomen and pelvis on 07/14/2021 with past history of alcoholism and normal liver function currently. Normal liver enzymes with AST 16 and ALT 13 on 01/20/2022. Constipation COVID-19 (~07/25/23) Tested positive 07/28/2023. 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 Overweight (BMI 25.0-29.9) Polyp of colon Renal insufficiency (02/12/21) mild renal insufficiency with BUN 28 and creatinine 1.25 with GFR 55 on . Normal renal function 01/20/2022 with BUN 18, creatinine 1.02, GFR 70 with urinalysis normal and urine microalbumin ratio of 9 on 01/20/2022. BUN 22, creatinine 1.11, GFR 70 on 08/19/2022. BUN 25, creatinine 1.11 with GFR 70 on 03/03/2023. Rhinitis Type 2 diabetes mellitus with mild nonproliferative diabetic retinopathy without macular edema, bilateral (12/18/20) Dr. Fernandez. mild retinopathy 04/22/2022. Mild nonproliferative retinopathy on 04/14/2023. UTI (urinary tract infection) Family History Family History Mother Patient's mother is Father Patient's father is Social History Social History Smoking status: Never smoker Alcohol intake: former Alcohol use details: RECOVERING ALCOHOLIC-LAST DRINK 1982 Substance use: never Substance use type: does not use Lack of Transportation: No Lack of Food: Never True Current Housing: I Have Housing Concerned About Future Housing: No Difficulty Paying Gas/Electric Bills: No Difficulty Paying for Meds: No Currently Unemployed: No Education: High School Diploma/GED Difficulty w/ Childcare or Family Care: No Living arrangements: with family Gender identity (if verbalized by the patient): Male Sexual Orientation (if Verbalized by the Patient): Straight or Heterosexual Spiritual care concerns: No Exam Narrative: GENERAL: Well-appearing, well-nourished, and in no acute distress. HEAD: Normocephalic, atraumatic. EYES: PERRLA and EOMI. ENT: Nares clear, no rhinorrhea or epistaxis. Mucous membranes moist. Oropharynx without tonsillar hypertroph
== END 2023-08-01 12:15 | disposition home or self-care (01) ==
LOC: ANHED 12:09
PROVIDERS: Emergency Medicine; Emergency Provider Physician Assistant; PCP Family Medicine
DX: N39.0 Urinary tract infection, site not specified (principal); K74.60 Unspecified cirrhosis of liver; E11.3293 Type 2 diabetes mellitus with mild nonproliferative diabetic retinopathy without macular edema, bilateral; E66.3 Overweight; Z68.27 Body mass index [BMI] 27.0-27.9, adult; N28.9 Disorder of kidney and ureter, unspecified; Z86.010 Personal history of colon polyps; Z92.3 Personal history of irradiation; Z85.21 Personal history of malignant neoplasm of larynx; Z86.16 Personal history of COVID-19; Z79.84 Long term (current) use of oral hypoglycemic drugs
CPT/HCPCS: 81001; 99283

== ENCOUNTER 2023-09-29 19:07 | Emergency (ER) | payer MEDICARE, SELFPAY ==
[2023-09-29 19:09] VITALS: BP 164/96; PULSE 98; RESP 18; TEMP 36.3; O2SAT 100
[2023-09-29 19:54] LABS: Non Pathogenic Casts 0-2; RBC Urine >100 /hpf (0-2); Squamous Epithelial Cell Urine None seen /hpf (Few)
[2023-09-29 19:56] LABS: Appearance Urine Turbid (Clear); Bilirubin Urine 1+ (Negative); Blood Urine 3+ (Negative); Glucose Urine UA Negative (Negative); Ketones Urine Negative (Negative); Leukocyte Esterase Ur 1+ LEU/UL (Negative); Nitrate Urine Negative (Negative); Protein Urine 1+ mg/dL (Negative); Specific Grav Ur 1.026 (1.001-1.035)
[2023-09-29 19:57] LABS: Bacteria Urine 1+ /hpf; Color Urine Amber (Yellow)
[2023-09-29 19:58] LABS: Add Urine Microscopic? YES
[2023-09-29 21:27] VITALS: BP 157/92; PULSE 76; RESP 14; TEMP 36.9; O2SAT 100
--- NOTE | 2023-09-29 22:33 | ED.GENADULT ---
HPI - General Adult General Chief complaint: Urogenital-Male Stated complaint: UTI Time Seen by Provider: 09/29/23 21:43 History of Present Illness HPI narrative: This is an 78-year-old male history of prostate cancer presenting with hematuria. Started 2 days ago. He is having no difficulty urinating or abdominal pain. Patient thinks that he has UTI. No other complaints. Related Data Home Medications Medication Instructions Recorded Confirmed cyanocobalamin (vitamin B-12) 2,500 mcg sublingual DAILY 01/25/20 09/09/23 2,500 mcg sublingual tablet (Vitamin B-12) vitamins A,C,D-korg-tngycd 2,148 2 tablet PO QNOON 02/20/22 09/09/23 mcg-113 mg-45 mg-17.4 mg tablet (Eye Multivitamin) Allergies Allergy/AdvReac Type Severity Reaction Status Date / Time No Known Allergies Allergy Unknown Verified 08/01/23 10:59 [facility] Past Medical History Medical History Acute bronchitis Alcoholism in recovery quit drinking 07/18/1983. BMI 28.0-28.9,adult BMI 29.0-29.9,adult Cataracts, bilateral Change in stool Chronic low back pain without sciatica Cirrhosis of liver (~06/2021) nodularity of the surface of the liver on CT of the abdomen and pelvis on 07/14/2021 with past history of alcoholism and normal liver function currently. Normal liver enzymes with AST 16 and ALT 13 on 01/20/2022. Constipation COVID-19 (~07/25/23) Tested positive 07/28/2023. 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 Overweight (BMI 25.0-29.9) Polyp of colon Renal insufficiency (02/12/21) mild renal insufficiency with BUN 28 and creatinine 1.25 with GFR 55 on . Normal renal function 01/20/2022 with BUN 18, creatinine 1.02, GFR 70 with urinalysis normal and urine microalbumin ratio of 9 on 01/20/2022. BUN 22, creatinine 1.11, GFR 70 on 08/19/2022. BUN 25, creatinine 1.11 with GFR 70 on 03/03/2023. Rhinitis Type 2 diabetes mellitus with mild nonproliferative diabetic retinopathy without macular edema, bilateral (12/18/20) Dr. Fernandez. mild retinopathy 04/22/2022. Mild nonproliferative retinopathy on 04/14/2023. Fasting glucose 98 with hemoglobin A1c 5.4 on 09/01/2023. UTI (urinary tract infection) Family History Family History Mother Patient's mother is Father Patient's father is Social History Social History Smoking status: Never smoker Alcohol intake: former Alcohol use details: RECOVERING ALCOHOLIC-LAST DRINK 1982 Substance use: never Substance use type: does not use Lack of Transportation: No Lack of Food: Never True Current Housing: I Have Housing Concerned About Future Housing: No Difficulty Paying Gas/Electric Bills: No Difficulty Paying for Meds: No Currently Unemployed: No Education: High School Diploma/GED Difficulty w/ Childcare or Family Care: No Living arrangements: with family Gender identity (if verbalized by the patient): Male Sexual Orientation (if Verbalized by the Patient): Straight or Heterosexual Spiritual care concerns: No Exam Narrative: APPEARANCE: No apparent distress. Head: atraumatic. EYES: EOMI, NOSE: Atraumatic NECK: Trachea midline RESPIRATORY: No increased rate of breathing CARDIOVASCULAR: RRR, ABDOMINAL: Non-distended soft nontender no guarding rebound no CVA tenderness MUSCULOSKELETAl: No obvious deformities NEURO: Alert. Moving 4/4 extremities SKIN:: Warm, dry. Normal color PSYCHIATRIC: Normal affect Course Vital Signs Vital signs: Vital Signs Temperature 97.4 F L 09/29/23 19:09 Pulse Rate 98 09/29/23 19:09 Respiratory Rate 18 09/29/23 19:09 Blood Pressure 164/96 H 09/29/23 19:09 Pulse Oximetry 100 09/29/23 19:09 Oxygen Delivery Ro
[2023-09-29] MEDS: SULFAMETHOXAZOLE/TRIMETHOPRIM 800/160 MG DS TABLET 1 TAB PO (22:49)
[2023-09-29 22:52] VITALS: BP 148/86; PULSE 67; RESP 14; O2SAT 99
== END 2023-09-29 22:54 | disposition home or self-care (01) ==
PROVIDERS: Student in an Organized Health Care Education/Training Program; Emergency Provider Emergency Medicine; PCP Family Medicine
DX: R31.9 Hematuria, unspecified (principal); E11.9 Type 2 diabetes mellitus without complications; M54.50 Low back pain, unspecified; G89.29 Other chronic pain; Z87.440 Personal history of urinary (tract) infections
CPT/HCPCS: 81001; 87086; 99283; A9270

== ENCOUNTER 2023-10-14 07:30 | Outpatient (CLI) | payer MEDICARE, SELFPAY ==
--- NOTE | ~2023-10-14 | CT_ITS ---
EXAMINATION: CT abdomen pelvis wo/w con DATE: 10/14/2023 08:27 INDICATION: Hematuria TECHNIQUE: Computed tomography (CT) of the abdomen and pelvis was performed without intravenous contr ast. CT of the abdomen and pelvis was then performed with a total of 130 mL Omnipaque-350 intravenous contrast using a double-bolus technique for simultaneous opacification of the renal parenchyma and r enal collecting system Automated exposure control and iterative reconstruction technique were employe d. The dose-length product was 1338.61 mGy-cm. COMPARISON: 07/14/2021 FINDINGS: Mild dependent and basilar predominant atelectasis in the bilateral lower lungs. Heart size is normal . Atherosclerotic coronary artery calcifications. No pericardial or pleural effusion. Small sliding-t ype hiatal hernia. There is subtle liver surface nodularity consistent with cirrhosis. Paraesophageal collaterals and likely recanalized umbilical vein consistent with secondary portal venous hypertensi on. Multiple splenic calcific lesions consistent with old granulomatous disease. Pancreas and bilater al adrenal glands are normal. Bilateral kidneys are normal with symmetric parenchymal enhancement and no urolithiasis. There is contrast opacification extending throughout the bilateral renal collecting systems and ureters into the bladder. No evident urothelial irregularities or filling defects. Statu s post prostatectomy with multiple surgical clips at the prostatectomy bed and additional surgical cl ips consistent with likely associated bilateral pelvic lymph node dissections. Bladder is otherwise u nremarkable. Bowels including the appendix are normal. No free intraperitoneal gas or fluid. No patho logically enlarged abdominal or pelvic lymphadenopathy. There is calcified atherosclerosis of the aor ta and many of the other arteries. Chronic L2 compression fracture. Severe disc height loss with ant erior fusion at L5-S1. Otherwise mild lumbar and lower thoracic spondylosis. IMPRESSION: 1. Normal kidneys and ureters with no urolithiasis or urothelial irregularities. 2. Cirrhosis with likely portal venous hypertension with paraesophageal collaterals. 3. Postoperative change of prior prostatectomy and bilateral pelvic lymph node dissections. Reviewed, dictated and finalized at location B. 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 Normal kidneys and ureters with no urolithiasis or urothelial irregularities . 2. Cirrhosis with likely portal venous hypertension with paraesophageal collate rals. 3. Postoperative change of prior prostatectomy and bilateral pelvic lymph node dissections.
[2023-10-14 08:03] LABS: Estimated Glomerular Filt Rate 58
== END 2023-10-14 07:31 | disposition home or self-care (01) ==
PROVIDERS: PCP Family Medicine; Visit Provider Physician Assistant
DX: R31.0 Gross hematuria (principal); K74.60 Unspecified cirrhosis of liver
CPT/HCPCS: 74178; Q9967

== ENCOUNTER → 2024-06-29 15:47 | Outpatient (CLI) | payer MEDICARE, SELFPAY ==
--- NOTE | ~2024-06-29 | XR_ITS ---
EXAMINATION: XR chest 2V DATE: 06/29/2024 16:00 INDICATION: Chronic cough TECHNIQUE: frontal view of the chest was obtained. COMPARISON: None FINDINGS: There are few scattered calcified pulmonary nodules along with a few splenic calcifications consisten t with old granulomatous disease. Mild linear discoid atelectasis/scarring at the right costophrenic angle. No other airspace opacities, pulmonary edema, pleural effusion or pneumothorax. Heart size is normal. Mild thoracic spondylosis with bridging osteophytes at multiple levels consistent with diffus e idiopathic skeletal hyperostosis (DISH). IMPRESSION: 1. No acute cardiopulmonary disease. Reviewed, dictated and finalized at location B. 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
== END ==
PROVIDERS: PCP Family Medicine; Visit Provider Family Medicine
DX: R05.3 Chronic cough (principal)
CPT/HCPCS: 71046

== ENCOUNTER 2024-09-13 10:20 | Emergency (ER) | payer MEDICARE, SELFPAY ==
[2024-09-13 10:26] VITALS: BP 144/79; PULSE 96; RESP 18; TEMP 36.5; O2SAT 97
--- OUTSIDE RECORDS SUMMARY | 2024-09-13 11:15 | XMS_ITS | Clinical Summary ---
Author Organization [facility] Address [address] [place] [address]. [place], [place] [id number] [place] [id number] Care Team Providers Care Menagerie Caretaker Name Role Phone Franki Chan MD Primary Care Provider [phone] Allergies Active Allergy Reactions Criticality Noted Date Comments Bee Venom Anaphylaxis High 07/08/2021 Medications No known medications Social History Tobacco Use Types Packs/Day Years Used Date Smoking Tobacco: Unknown Smokeless Tobacco: Never Alcohol Use Standard Drinks/Week Comments Not Currently 0 (1 standard drink = 0.6 oz pur e alcohol) Sex and Gender Information Value Date Recorded Sex Assigned at Not on file Legal Sex Male 1:00 PM KIER DRIER Gender Identity Not on file Sexual Orientation Not on file Last Filed Vital Signs Vital Sign Reading Time Taken Comments Blood Pressure - - Pulse - - Temperature - - Respiratory Rate - - Oxygen Saturation - - Inhaled Oxygen Concentration - - Weight 93.9 kg (207 lb) 07/08/2021 10:34 AM KIER DRIER Height 177.8 cm (5' 10 ) 07/08/2021 10:34 AM KIER DRIER Body Mass Index 29.7 07/08/2021 10:34 AM KIER DRIER Plan of Treatment Health Maintenance Due Date Last Done Comments DTaP, Tdap and Td Vaccines (1 - Tdap) 1964 Annual Medicare Wellness Visit 2008 Pneumococcal Vaccine: 65+ Years (1 of 1 - PCV) 2008 Zoster Vaccines (2 of 3) 01/05/2013 11/10/2012 RSV Immunization or 60+ Years (1 - 1-dose 75+ series) 2018 COVID-19 Vaccine ( season) 2024 06/19/2021, 11/03/2020, 10/06/2020 Influenza Adult (#1) 2024 04/11/2019, 04/09/2018, 04/27/2017, Additional history exists Meningococcal B Vaccine Aged Out No l onger eligible based on patient's age to complete this topic Meningococcal Vaccine Aged Out No barbara ross eligible based on patient's age to complete this topic RSV Immunizations Under 20 Months Aged Out No longer eligible based on patient's age to complete this topic Insurance [employer] Care Teams Menagerie Caretaker Relationship Specialty Start Date End Date Franki Chan MD [address] [place] [address] [address] [place] [address] PCP - General FAMILY PRACTICE 07/05/21
--- OUTSIDE RECORDS SUMMARY | 2024-09-13 11:15 | XMS_ITS | Clinical Summary ---
Author Organization [facility] Address [address] [place] [address] Care Team Providers Care Mold Maker Plastic Molds Name Role Phone Unavailable Primary Care Provider Unavailabl e Source Comments [facility],non-owned Affiliates and Associated Physician Practices is amultiple site organization consisting of ambulatory clinics and hospital sitesin [place], [place], [place] and [place]. This disclosure is being madepursuant to the Care Everywhere program and may not contain all information available regarding this patient. Last updated 18.[facility] [place] Social History Tobacco Use Types Packs/Day Years Used Date Smoking Tobacco: Never Assessed Sex and Gender Information Value Date Recorded Sex Assigned at Not on file Gender Identity Not on file Sexual Orientation Not on file Plan of Treatment Health Maintenance Due Date Last Done Comments DTAP/TDAP/TD VACCINES (1 - Tdap) 1964 PNEUMOCOCCAL VACCINE 50+ (1 of 1 - PCV) 1993 ZOSTER VACCINE (1 of 2) 1993 Respiratory Syncytial Virus (RSV) Vaccine Pt: or over 60 yrs (1 - 1-dose 75+ series) 2018 COVID-19 VACCINE (2023-2 5 season) 2024 INFLUENZA VACCINE (#1) 2024 DEPRESSION SCREENING 08/17/2024 HEPATITIS B VACCINE Aged Out No longe r eligible based on patient's age to complete this topic HIB VACCINE Aged Out No longer eligi ble based on patient's age to complete this topic HPV VACCINE Aged Out No longer eligi ble based on patient's age to complete this topic MENINGOCOCCAL (Group B) VACCINE Aged Out No longer eligible based on patient's age to complete this topic MENINGOCOCCAL VACCINE Aged Out No barbara ross eligible based on patient's age [place] [address]
--- OUTSIDE RECORDS SUMMARY | 2024-09-13 11:15 | XMS_ITS | Encounter Summary ---
Author Organization [facility] Address [address] [place] [address] Care Team Providers Care Staffing Executive Name Role Phone Unavailable Primary Care Provider Unavailabl e Encounter Details Date Type Department Care Team (Late st Contact Info) Description 08/20/2022 Lab Requisition [facility] [address] [place] [id number] Torin Ontiveros MD [address] [place] [id number] Social History Tobacco Use Types Packs/Day Years Used Date Smoking Tobacco: Never Assessed Sex and Gender Information Value Date Recorded Sex Assigned at Not on file Gender Identity Not on file Sexual Orientation Not on file documented as of this encounter Plan of Treatment Not on file documented as of this encounter Procedures Procedure Name Priority Date/Time Associated Diagnosis Comments DERMATOPATHOLOGY Routine 08/19/2022 12:0 0 AM [employer] documented in this encounter Results * DERMATOPATHOLOGY (08/19/2022 12:00 AM MANA[employer]) Case Report Dermatopathology Report ? Case: [id number] ? Authorizing Provider: ??Torin Ontiveros MD ?Collected: ? 08/19/2022 12:00 AM ? Ordering Location: ? [facility] ?Received: ?08/20/2022 02:01 PM ? Pathologist: ? Kristi Molina MD ? Specimen: ?Skin, left lat back ? 3 4:10 PM [facility] Final Diagnosis Specimen A. 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 Eczema vs. Other 3 4:10 PM [facility] Gross Description Specimen A: Received is one formalin filled container labeled with the patient's name and designated left lat back. The specimen consists of a punch biopsy measuring 4x4x5 mm. Jar 0. 3 4:10 PM [facility] Microscopic Description Specimen A. SKIN, left lat back: There is focal parakeratosis and spongiosis. In the dermis there is a mainly superficial perivascular lymphohistiocytic inflammatory infiltrate with eosinophils. 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 COMMENT: The histological differential diagnosis includes an eczematous process, a hypersensitivity reaction, such as to contact or drug, and less likely the urticarial phase of bullous pemphigoid. 3 4:10 PM [facility] Disclaimer An external and internal positive and negative controls are appropriate for the histochemical, immunohistochemical and immunofluorescence stain(s) in this case (if any), except where stated explicitly. The performance characteristics of the stain(s) cited in this report were developed and its performance characteristic determined by the Dermatopathology Laboratory at [facility], directed by Dr. Meliton Vo. These tests need not be, and therefore are not, approved by the [place] Food and Drug Administration. The tests are used for clinical purposes. Billing Codes Specimen Charges Stain Charges 83901 1 67520 1 3 4:10 PM [facility] [employer] DERMATOPATHOLOGY LABORATORY Embedded Images 3 4:10 PM [facility] [employer] [facility] DERMATOPATHOLOGY LABORATORY Pathology/Cytolog y TISSUE SPECIMEN FROM SKIN / Unknown 08/19/2022 08/20/2022 2:01 PM [employer]NA[employer] Torin Ontiveros MD LAB - PATHOLOGY/CYTO LOGY ORDERABLES DERMATOPATHOLOGY LABORATORY [facility] - Department of Dermatology [facility] Medicine [address] [place] [address], [address] [phone] documented in this encounter Visit Diagnoses Not on filedocumented in this encounter
--- OUTSIDE RECORDS SUMMARY | 2024-09-13 11:15 | XMS_ITS | Referral Summary ---
Author Organization [facility] Virtual Care Address [address] [place] [address] Phone Care Team Providers Care Certified Ski Patroller Name Role Phone Franki Chan MD Primary Care Provider [phone] Serena Caban NP Unavailable [phone] Luis Au MD Unavailable Jimmy Canseco MD Unavailable [phone] Encounters Date Type Department Care Team Description 07/11/2024 8:20 AM HEEL FORMER Office Visit [facility] Department of Otolaryngology Head-Neck Division [address] [facility] [address] [place] [id number] Rocio Lazo PA 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) 07/11/2024 6:19 AM HEEL FORMER - 07/11/2024 11:59 PM HEEL FORMER Hospital Encounter [facility] [address] [place] [address] Jimmy Canseco MD Laryngeal cancer (CMS/HCC) (HCC) Discharge Disposition: Discharge to home or self care from Last 3 Months Allergies Active Allergy Reactions Criticality Noted Date Comments Venom-Honey Bee Anaphylaxis High 07/08/2021 Medications metFORMIN XR (GLUCOPHAGE XR) 500 mg 24 hr tabletIndicatio ns:type 2 diabetes mellitus Take 3 tablets (1,500 mg total) by mouth daily after dinner 1 Active simvastatin (ZOCOR) 80 mg tabletIndicatio ns:hyperlipidem ia Take 1 tablet (80 mg total) by mouth nightly Active levothyroxine (SYNTHROID) 88 mcg tabletIndicatio ns:hypothyroidi sm Take 1 tablet (88 mcg total) 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 3 Active LORazepam (ATIVAN) 0.5 mg tablet Take 1 tablet (0.5 mg total) by mouth once for 1 dose 1 hour before MRI scan. 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 Cancer Staging:Clinical stage from 05/22/2022:Stage II(cT2, cN0, cM0) - Signed by Chioma Melgar MD on 05/28/2022 Mass of larynx 05/20/2022 Overview (05/20/2022): Added automatically from request for surgery [id number] Malignant neoplasm of prostate 03/08/1999 Cancer Staging:Clinical stage from 03/08/1999:Stage III(T3a, N0, M0, G1) - Signed by Serena Caban NP on 06/08/2018 Social History Tobacco Use Types Packs/Day Years Used Date Smoking Tobacco: Former Cigarettes Q uit: 1972 Smokeless Tobacco: Never Tobacco Cessation:Counseling Given: No AUDIT-C Answer Date Recorded Q1: How often do you have a drink containing alcohol? Never 09/16/2023 Q2: How many drinks containi ng alcohol do you have on a typical day when you are drinking? Patient does not drink Q3: How often do you have si x or more drinks on one occasion? Never 09/16/2023 Sex and Gender Information Value Date Recorded Sex Assigned at Not on file Legal Sex Male 4:32 PM HEEL FORMER Gender Identity Not on file Sexual Orientation Not on file Last Filed Vital Signs Vital Sign Reading Time Taken Comments Blood Pressure 148/110 09/16/2023 10:00 AM HEEL FORMER Pulse 87 09/16/2023 10:00 AM HEEL FORMER Temperature 36.5 ??C (97.7 ??F) 09/16/2023 10:[address] Respiratory Rate 18 09/16/2023 10:00 AM HEEL FORMER Oxygen Saturation 97% 09/16/2023 10:00 AM HEEL FORMER Inhaled Oxygen Concentration - - Weight 88.9 kg (196 lb) 07/11/2024 8:05 AM HEEL FORMER Height 180.3 cm (5' 11 ) 08/31/2023 3:28 PM HEEL FORMER Body Mass Index 27.34 08/31/2023 3:28 PM HEEL FORMER Plan of Treatment Not on file Procedures Procedure Name Priority Date/Time Associated Diagnosis Comments PSA, TOTAL AND FREE Routine 07/18/2024 1:02 PM HEEL FORMER Prostate CA (HCC) CT CHEST W CONTRAST Schedule Routine, Read Routine (OP Routine) 07/11/2024 7:29 AM HEEL FORMER Laryngeal cancer (CMS/HCC) (HCC) CT SOFT TISSUE NECK W CONTRAST Schedule Routine, Read Routine (OP Routine) 07/11/2024 7:29 AM HEEL FORMER Laryngeal cancer (CMS/HCC) (HCC) POCT CREATININE - DEVICE Routine 07/11/2024 6:[address] ABDOMEN PELVIS W CONTRAST Schedule Routine, Read Routine (OP Routine) 04/10/2021 10:22 AM CDT Malignant neoplasm of prostate (CMS/HCC) (HCC) from Last 3 Months or Most Recently Relevant to Health Maintenance Results * (ABNORMAL) PSA, total and free (07/18/2024 1:02 PM HEEL FORMER) PSA 1.7 < OR = 4.0 ng/mL [facility] [place] [facility] PSA, free 0.2 ng/mL [facility] J PSA, free 12(L) >25 % (calc) [facility] Comment: PSA(ng/mL) ?Free PSA(%) ? Estimated(x) Probability ? of Cancer(as%) 0-2.5 ?(*) ? Approx. 1 2.6-4.0(1) ? 0-27(2) ? 24(3) 4.1-10(4) ?0-10 ?56 ? 11-15 ? 28 ? 16-20 ? 20 ? 21-25 ? 16 ? >or =26 ? 8 >10(+) ? N/A ?>50 References:(1)Avery et al.:Urology 60: 469-474 (2001) ? (2)Avery et al.:J.Urol 168: 922-925 (2001) ?Free PSA(%) ?? Sensitivity(%) ??Specificity(%) ?< or = 25 ?85 ?19 ?< or = 30 ?93 ? 9 ? (3)Avery et al.:TIFFANIE 277: 3863-5059 (1996) ? (4)Avery et al.:TIFFANIE 279: 4367-6539 (1997) (x)These estimates vary with age, ethnicity, family ?? history and ORIANA results. (*)The diagnostic usefulness of % Free PSA has not been ?? established in patients with total PSA below 2.6 ng/mL (+)In men with PSA above 10 ng/mL, prostate cancer risk is ?? determined by total PSA alone. The Total PSA value from this assay system is standardized against the equimolar PSA standard. The test result will be approximately 20% higher when compared to the WHO-standardized Total PSA (Siemens assay). Comparison of serial PSA results should be interpreted with this fact in mind. PSA was performed using the Steven Sagrario Immunoassay method. Values obtained from different assay methods cannot be used interchangeably. PSA levels, regardless of value, should not be interpreted as absolute evidence of the presence or absence of disease. Blood 07/18/2024 1:02 PM HEEL FORMER 07/18/2024 1:02 PM HEEL FORMER us Serena Caban CAR STORER LAB BLOOD ORDERABLES Final Result [facility] [address] [place] [address] * CT Chest W Contrast (07/11/2024 7:29 AM HEEL FORMER) Anatomical Region Laterality Modality Body N/A Computed Tomogra phy 07/11/2024 7:35 AM HEEL FORMER Impressions 07/11/2024 7:35 AM HEEL FORMER 1. ??No specific CT evidence of metastatic disease in the chest Electronically signed by: Matt Tristan M.D. Narrative 07/11/2024 7:35 AM HEEL FORMER EXAMINATION: CT of the chest with intravenous contrast. HISTORY: Laryngeal cancer TECHNIQUE: Computed axial tomographic images of the chest were obtained according to standard protocol after the uneventful administration of 100 cc Optiray 350. COMPARISON: PET/CT 08/31/2023, chest CT 04/16/2023 FINDINGS: Basilar subpleural groundglass which could reflect atelectasis or an interstitial lung abnormality. ??No suspicious pulmonary nodule or mass. ??No consolidation, pneumothorax, pleural effusion Multivessel severe coronary artery disease. ??No pericardial effusion. No new thoracic adenopathy Limited views of the upper abdomen demonstrate findings of chronic liver disease with periportal space widening and surface nodularity. Splenic granulomas. No new suspicious osseous lesion Procedure Note Matt Tristan MD - 07/11/2024 EXAMINATION: CT of the chest with intravenous contrast. HISTORY: Laryngeal cancer TECHNIQUE: Computed axial tomographic images of the chest were obtained according to standard protocol after the uneventful administration of 100 cc Optiray 350. COMPARISON: PET/CT 08/31/2023, chest CT 04/16/2023 FINDINGS: Basilar subpleural groundglass which could reflect atelectasis or an interstitial lung abnormality. No suspicious pulmonary nodule or mass. No consolidation, pneumothorax, pleural effusion Multivessel severe coronary artery disease. No pericardial effusion. No new thoracic adenopathy Limited views of the upper abdomen demonstrate findings of chronic liver disease with periportal space widening and surface nodularity. Splenic granulomas. No new suspicious osseous lesion IMPRESSION: 1. No specific CT evidence of metastatic disease in the chest Electronically signed by: Matt Tristan M.D. Jimmy Canseco MD IMG CT PROCEDURES Ene l Result * CT Neck Soft Tissue W Contrast (07/11/2024 7:29 AM HEEL FORMER) Anatomical Region Laterality Modality Head and Neck N/A Computed Tomogra phy 07/11/2024 9:44 AM HEEL FORMER Impressions 07/11/2024 9:44 AM HEEL FORMER No discrete mass in the larynx or vocal cord to suggest recurrence. No cervical lymphadenopathy. Electronically signed by: Jerome Higginbotham MD, PHD Narrative 07/11/2024 9:44 AM HEEL FORMER EXAMINATION: CT of the neck with contrast HISTORY: Laryngeal cancer status post definitive radiation TECHNIQUE: CT of the neck was performed according to the standard protocol with intravenous contrast. Contrast information: 121 mL Optiray-350 COMPARISON: 09/07/2023 and 08/31/2023 FINDINGS: No discrete mass in the larynx or vocal cord to suggest recurrence. No cervical lymphadenopathy. Scattered subcentimeter lymph nodes are seen in the neck. None are pathologically enlarged or abnormally enhancing. The muscles of the neck are normal. Vessels of the neck demonstrate normal course and caliber. Fascial planes are preserved and the deep spaces of the neck are normal. The visualized airway is widely patent. The base of the skull and the temporal bones are normal. Limited views of the brain including the cerebellum and brainstem are normal. The limited view of the [place] is unremarkable. The visualized portions of the orbits are normal. Severe cervical spondylosis.. Limited examination of the superior thorax shows no pulmonary infiltrate, suspicious nodules, or pleural effusions. ??Atherosclerosis of the carotid bifurcation. Procedure Note Jerome Higginbotham MD PhD - 07/11/2024 EXAMINATION: CT of the neck with contrast HISTORY: Laryngeal cancer status post definitive radiation TECHNIQUE: CT of the neck was performed according to the standard protocol with intravenous contrast. Contrast information: 121 mL Optiray-350 COMPARISON: 09/07/2023 and 08/31/2023 FINDINGS: No discrete mass in the larynx or vocal cord to suggest recurrence. No cervical lymphadenopathy. Scattered subcentimeter lymph nodes are seen in the neck. None are pathologically enlarged or abnormally enhancing. The muscles of the neck are normal. Vessels of the neck demonstrate normal course and caliber. Fascial planes are preserved and the deep spaces of the neck are normal. The visualized airway is widely patent. The base of the skull and the temporal bones are normal. Limited views of the brain including the cerebellum and brainstem are normal. The limited view of the [place] is unremarkable. The visualized portions of the orbits are normal. Severe cervical spondylosis.. Limited examination of the superior thorax shows no pulmonary infiltrate, suspicious nodules, or pleural effusions. Atherosclerosis of the carotid bifurcation. IMPRESSION: No discrete mass in the larynx or vocal cord to suggest recurrence. No cervical lymphadenopathy. Electronically signed by: Jerome Higginbotham MD, PHD Jimmy Canseco MD IMG CT PROCEDURES Ene l Result * POCT creatinine (07/11/2024 6:58 AM HEEL FORMER) Creatinine POC 1.2 0.7 - 1.3 mg/dL Blood 07/11/2024 6:58 AM HEEL FORMER 07/11/2024 6:58 AM HEEL FORMER us Franki Chan MD LAB POCT ORDERABLES - DEV ICE Final Result [facility] Department [place] [address] * CT Abdomen Pelvis W Contrast (04/10/2021 10:22 AM CDT) Anatomical Region Laterality Modality Body N/A Computed Tomogra phy 04/10/2021 11:1 6 AM CDT Impressions 04/10/2021 2:52 PM CDT 1. ??Mildly increased prominence of several subcentimeter retroperitoneal lymph nodes. ??PET/CT with prostate-specific radiotracer can be considered for further evaluation if there is continued elevation prostate-specific antigen. ??Otherwise, no evidence of recurrent or metastatic disease in the abdomen or pelvis. 2. ??Age-indeterminate L2 superior endplate compression deformity with at least 50% height loss, new since 2007. Correlate with subsequent bone scan. 3. Morphologic findings of hepatic fibrosis. Dictated by: Brigido Rocha M.D. The radiology attending physician has personally reviewed this study, and had reviewed and/or edited this written report and agrees with it. Electronically signed by: Reji Ocasio M.D. Narrative 04/10/2021 2:52 PM CDT EXAMINATION: ??Computed tomography of the abdomen and pelvis with intravenous contrast HISTORY: Prostate adenocarcinoma status post radical prostatectomy followed by salvage radiation therapy and completion of therapy in 2008. ??PSA of 0.8 03/21/2021. TECHNIQUE: ??Transaxial computed tomographic images of the abdomen and pelvis were obtained with intravenous contrast according to the standard protocol after the uneventful administration of 100 mL Opti-Ray 350 intravenous contrast. COMPARISON: 07/20/2008 FINDINGS: Evaluation of the lung bases shows no pleural effusion. ??Heart size within normal limits. ??No pericardial effusion. Nodular liver surface, right hemiliver atrophy, and periportal widening which can be seen in context of fibrosis. ??No biliary ductal dilatation. ??Gallbladder and adrenal glands are normal. ??Splenic granulomas are noted. ??Normal pancreas. Renal parenchyma enhance symmetrically. ??No renal stone or hydronephrosis. ??Normal bladder. ??Fiduciary markers are present in the prostatectomy bed. Small and large bowel are normal in caliber without wall thickening or obstruction. ??Normal appendix. ??No free fluid or free intra-abdominal air. Mildly increased prominence of several subcentimeter retroperitoneal lymph nodes. No abdominal or pelvic lymphadenopathy. Abdominal aorta is atherosclerotic with infrarenal ectasia. L2 superior endplate compression deformity, new since 2007. ??No suspicious osseous lesion is definitely seen. ??Multilevel degenerative changes present in the spine. Procedure Note Reji Ocasio MD - 04/10/2021 EXAMINATION: Computed tomography of the abdomen and pelvis with intravenous contrast HISTORY: Prostate adenocarcinoma status post radical prostatectomy followed by salvage radiation therapy and completion of therapy in 2008. PSA of 0.8 03/21/2021. TECHNIQUE: Transaxial computed tomographic images of the abdomen and pelvis were obtained with intravenous contrast according to the standard protocol after the uneventful administration of 100 mL Opti-Ray 350 intravenous contrast. COMPARISON: 07/20/2008 FINDINGS: Evaluation of the lung bases shows no pleural effusion. Heart size within normal limits. No pericardial effusion. Nodular liver surface, right hemiliver atrophy, and periportal widening which can be seen in context of fibrosis. No biliary ductal dilatation. Gallbladder and adrenal glands are normal. Splenic granulomas are noted. Normal pancreas. Renal parenchyma enhance symmetrically. No renal stone or hydronephrosis. Normal bladder. Fiduciary markers are present in the prostatectomy bed. Small and large bowel are normal in caliber without wall thickening or obstruction. Normal appendix. No free fluid or free intra-abdominal air. Mildly increased prominence of several subcentimeter retroperitoneal lymph nodes. No abdominal or pelvic lymphadenopathy. Abdominal aorta is atherosclerotic with infrarenal ectasia. L2 superior endplate compression deformity, new since 2007. No suspicious osseous lesion is definitely seen. Multilevel degenerative changes present in the spine. IMPRESSION: 1. Mildly increased prominence of several subcentimeter retroperitoneal lymph nodes. PET/CT with prostate-specific radiotracer can be considered for further evaluation if there is continued elevation prostate-specific antigen. Otherwise, no evidence of recurrent or metastatic disease in the abdomen or pelvis. 2. Age-indeterminate L2 superior endplate compression deformity with at least 50% height loss, new since 2007. Correlate with subsequent bone scan. 3. Morphologic findings of hepatic fibrosis. Dictated by: Brigido Rocha M.D. The radiology attending physician has personally reviewed this study, and had reviewed and/or edited this written report and agrees with it. Electronically signed by: Reji Ocasio M.D. Serena Caban NP IM CT PROCEDURES Final Res ult from Last 3 Months or Most Recently Relevant to Health [place] [id number] [employer] MEDICARE [employer] CHOICE MEDICARE PPO [employer] CHOICE MEDICARE PPO Care Teams Certified Ski Patroller Relationship Specialty Start Date End Date Franki Chan MD [address] [address] PCP - General 11/24/16 Serena Caban NP [address] [facility] [address] [place] [address] Nurse Practitioner Radiation Oncology 09/25/20 Luis Au MD [address] [facility] [address] [place] [address] Radiation Oncologist Radiation Oncology 05/28/22 Jimmy Canseco MD [address] [place] [address] Referring Physician Otolaryngology 05/28/22
--- OUTSIDE RECORDS SUMMARY | 2024-09-13 11:15 | XMS_ITS ---
Author Organization [facility] Virtual Care Address [facility] [place] [address] Phone Care Team Providers Care Senior Pensions Administrator Name Role Phone Franki Chan MD Primary Care Provider [phone] Serena Caban NP Unavailable Luis Au MD Unavailable Jimmy Canseco MD Unavailable Active Problems Problem Noted Date Diagnosed Date Squamous cell carcinoma of larynx ([facility]/HCC) 05/17 Cancer Staging:Clinical stage from 05/22/2022:Stage II(cT2, cN0, cM0) - Signed by Chioma Melgar MD on 05/28/2022 Mass of larynx 05/20/2022 Overview (05/20/2022): Added automatically from request for surgery [id number] Malignant neoplasm of prostate 03/08/1999 Cancer Staging:Clinical stage from 03/08/1999:Stage III(T3a, N0, M0, G1) - Signed by Serena Caban NP on 06/08/2018 Current Oncology Plans No current plan information found. Past Plans No past plan information found. Radiation Treatments * Plan Last Treated On Elapsed Days Fractions Treated Prescribed Fraction Dose Prescribed Total Dose HEAD NECK:1 07/30/2022 41 28 225 cGy 6,300 c Gy HEAD NECK 06/19/2022 0 1 225 cGy 6,525 cGy Reference Point Last Treated On Elapsed Days Session Dose Total Dose HN 202107/30/2022 41 225 cGy 6,525 cGy Lifetime Dose Tracking * Chemical Lifetime Dose Automatic Entry Manual Entr y DLP 3,154 mGycm 3,154 mGycm 0 mGycm
--- OUTSIDE RECORDS SUMMARY | 2024-09-13 11:15 | XMS_ITS | Referral Summary ---
Author Organization [facility] Address [address] [place] [address] Care Team Providers Care Push Connector Assembler Name Role Phone Unavailable Primary Care Provider Unavailabl e Source Comments [facility],non-owned Affiliates and Associated Physician Practices is amultiple site organization consisting of ambulatory clinics and hospital sitesin [place], [place] and [place]. This disclosure is being madepursuant to the Care Everywhere program and may not contain all information available regarding this patient. Last updated 18.[facility] Social History Tobacco Use Types Packs/Day Years Used Date Smoking Tobacco: Never Assessed Sex and Gender Information Value Date Recorded Sex Assigned at Not on file Gender Identity Not on file Sexual Orientation Not on file Plan of Treatment Not on file
--- OUTSIDE RECORDS SUMMARY | 2024-09-13 11:15 | XMS_ITS | Patient Health Summary ---
Author Organization [facility] Address [address] [place] [address] Care Team Providers Care Cq Developer Name Role Phone Unavailable Primary Care Provider Unavailabl e Note from [facility],non-owned Affiliates and Associated Physician Practices is amultiple site organization consisting of ambulatory clinics and hospital sitesin [place], [place], [place] and [place]. This disclosure is being madepursuant to the Care Everywhere program and may not contain all information available regarding this patient. Last updated 18.[facility] Social History Tobacco Use Types Packs/Day Years Used Date Smoking Tobacco: Never Assessed Sex and Gender Information Value Date Recorded Sex Assigned at Not on file Gender Identity Not on file Sexual Orientation Not on file Procedures * DERMATOPATHOLOGY(Performed 08/19/2022) * DERMATOPATHOLOGY(Performed 01/08/2022) * DERMATOPATHOLOGY(Performed 08/20/2011) Results * DERMATOPATHOLOGY (08/19/2022 12:00 AM GEAR HOBBER SET UP OPERATOR) Only the most recent of3 resultswithin the time period is included. Case Report Dermatopathology Report ? Case: [id number] ? Authorizing Provider: ??Torin Ontiveros MD ?Collected: ? 08/19/2022 12:00 AM ? Ordering Location: ? [facility] Care DermPath Lab ?Received: ?08/20/2022 02:01 PM ? Pathologist: ? Kristi Molina MD ? Specimen: ?Skin, left lat back ? 3 4:10 PM [facility] DERMATOPATHOLOGY LABORATORY Final Diagnosis Specimen A. 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 Eczema vs. Other 3 4:10 PM [facility] DERMATOPATH[facility]Y [facility] Gross Description Specimen A: Received is one formalin filled container labeled with the patient's name and designated left lat back. The specimen consists of a punch biopsy measuring 4x4x5 mm. Jar 0. 3 4:10 PM [facility] DERMATOPATHOLOGY [facility] Microscopic Description Specimen A. SKIN, [...] phase of bullous pemphigoid. 3 4:10 PM [facility] DERMATOPATHOLOGY [facility]ORAT[facility] Disclaimer An external and internal positive and negative controls are appropriate for the histochemical, immunohistochemical and immunofluorescence stain(s) in this case (if any), except where stated explicitly. The performance characteristics of the stain(s) cited in this report were developed and its performance characteristic determined by the Dermatopathology Laboratory at [facility], directed by Dr. Meliton Vo. These tests need not be, and therefore are not, approved by the [place] Food and Drug Administration. The tests are used for clinical purposes. Billing Codes Specimen Charges Stain Charges 76849 1 84452 1 3 4:10 PM GEAR HOBBER SET UP OPERATOR DERMATOPATHOLOGY LABORATORY Embedded Images 3 4:10 PM GEAR HOBBER SET UP OPERATOR DERMATOPATHOLOGY LABORATORY Pathology/Cytolog y TISSUE SPECIMEN FROM SKIN / Unknown 08/19/2022 08/20/2022 2:01 PM GEAR HOBBER SET UP OPERATOR Torin Ontiveros MD LAB - PATHOLOGY/CYTO LOGY ORDERABLES DERMATOPATHOLOGY LABORATORY [facility] - Department of Dermatology [address] [phone]
--- OUTSIDE RECORDS SUMMARY | 2024-09-13 11:16 | XMS_ITS | Encounter Summary ---
Author Organization [facility] Health Address [address] [place] [address] Care Team Providers Care Addiction Social Worker Name Role Phone Unavailable Primary Care Provider Unavailabl e Encounter Details Date Type Department Care Team (Late st Contact Info) Description 01/09/2022 Lab Requisition [facility] [address] [place] [id number] Torin Ontiveros MD [address] [place] [address] Social History Tobacco Use Types Packs/Day Years Used Date Smoking Tobacco: Never Assessed Sex and Gender Information Value Date Recorded Sex Assigned at Not on file Gender Identity Not on file Sexual Orientation Not on file documented as of this encounter Plan of Treatment Not on file documented as of this encounter Procedures Procedure Name Priority Date/Time Associated Diagnosis Comments DERMATOPATHOLOGY Routine 01/08/2022 12:0 0 AM CDT documented in this encounter Results * DERMATOPATHOLOGY (01/08/2022 12:00 AM CDT) Case Report Dermatopathology Report ? Case: [id number] ? Authorizing Provider: ??Torin Ontiveros MD ?Collected: ? 01/08/2022 12:00 AM ? Ordering Location: ? [facility] ?Received: ?01/09/2022 01:06 PM ? Pathologist: ? Marlee Vo MD ? Specimen: ?Skin, left sachin antihelix ? 2 5:30 PM CDT DERMATOPATHOLOGY LABORATORY Final Diagnosis Specimen A. 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 2 5:30 PM CDT DERMATOPATHOLOGY LABORATORY Gross Description Specimen A: Received is one formalin filled container labeled with the patient's name and designated left sachin antihelix. The specimen consists of a shave biopsy measuring [id number]. Jar 0. 2 5:30 PM CDT DERMATOPATHOLOGY LABORATORY Microscopic Description Specimen A. SKIN, left sachin antihelix: Sections show skin with irregularly shaped nests of keratinocytes with evidence of cornification. In some nests, there is loss of cohesion between the neoplastic cells, as well as individual dyskeratotic cells that lack intercellular bridges. 2 5:30 PM CDT DERMATOPATHOLOGY LABORATORY Disclaimer An external and internal positive and negative controls are appropriate for the histochemical, immunohistochemical and immunofluorescence stain(s) in this case (if any), except where stated explicitly. The performance characteristics of the stain(s) cited in this report were developed and its performance characteristic determined by the Dermatopathology Laboratory at [facility], directed by Dr. Meliton Vo. These tests need not be, and therefore are not, approved by the [place] Food and Drug Administration. The tests are used for clinical purposes. Billing Codes Specimen Charges Stain Charges 67441 1 2 5:30 PM CDT DERMATOPATHOLOGY LABORATORY Embedded Images 2 5:30 PM CDT DERMATOPATHOLOGY LABORATORY Pathology/Cytolog y TISSUE SPECIMEN FROM SKIN / Unknown 01/08/2022 01/09/2022 1:06 PM CDT Torin Ontiveros MD LAB - PATHOLOGY/CYTO LOGY ORDERABLES DERMATOPATHOLOGY LABORATORY [facility] - Department of Dermatology [facility] [address] [place] [address], [address] Floor [address] [phone] documented in this encounter Visit Diagnoses Not on filedocumented in this encounter
--- OUTSIDE RECORDS SUMMARY | 2024-09-13 11:16 | XMS_ITS | Clinical Summary ---
Author Organization [facility] Virtual Care Address [facility] access [facility] [place] [address] Phone Care Team Providers Care Curber Name Role Phone Franki Chan MD Primary Care Provider [phone] Serena Caban NP Unavailable Luis Au MD Unavailable Jimmy Cnaseco MD Unavailable [phone] Allergies Active Allergy Reactions Criticality Noted Date [...] 1 tablet (88 mcg total) by mouth animal pathologist before breakfast 1 Active cyanocobalamin, vitamin B-12, [...] (05/20/2022): Added automatically from request for surgery [id number] Malignant neoplasm of prostate 03/08/1999 Cancer Staging:Clinical stage from 03/08/1999:Stage III(T3a, N0, M0, G1) - Signed by Serena Caban NP on 06/08/2018 Encounters Date Type Department Care Team Description 07/11/2024 8:20 AM BUNG SEWER Office Visit [facility] Department of Otolaryngology Head-Neck Division [address] [address] [place] [address] Rocio Lazo PA 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) 07/11/2024 6:19 AM BUNG SEWER - 07/11/2024 11:59 PM BUNG SEWER Hospital Encounter [facility] [address] [place] [id number] Jimmy Canseco MD Laryngeal cancer (CMS/HCC) (HCC) Discharge Disposition: Discharge to home or self care from Last 3 Months Surgical History Surgery Date Site/Laterality Comments PROSTATE SURGERY 08/17/1998 - 08/16/1999 SKIN CANCER EXCISION 02/11/2022 Left left ear TONSILLECTOMY 08/17/1947 - 08/16/1948 WISDOM TOOTH EXTRACTION 08/17/1973 - 08/16/1974 Medical History Medical History Date Comments Cancer (CMS/HCC) (HCC) Diabetes (HCC) Thyroid disease Prostate cancer (HCC) Family History Medical History Relation Name Comments Cancer Father Anesthesia problems Neg Hx Relation Name Status Comments Father Social History Tobacco Use Types Packs/Day Years Used Date Smoking Tobacco: Former Cigarettes Q uit: 1971 Smokeless Tobacco: Never Tobacco Cessation:Counseling Given: No [...] on file Legal Sex Male 4:32 PM BUNG SEWER Gender Identity Not on file Sexual Orientation Not on file Obstetrics History Last Filed Vital Signs Vital Sign Reading Time Taken Comments Blood Pressure 148/110 09/16/2023 10:00 AM BUNG SEWER Pulse 87 09/16/2023 10:00 AM BUNG SEWER Temperature 36.5 ??C (97.7 ??F) 09/16/2023 10:[address] Respiratory Rate 18 09/16/2023 10:00 AM BUNG SEWER Oxygen Saturation 97% 09/16/2023 10:00 AM BUNG SEWER Inhaled Oxygen Concentration - - Weight 88.9 kg (196 lb) 07/11/2024 8:05 AM BUNG SEWER Height 180.3 cm (5' 11 ) 08/31/2023 3:28 PM BUNG SEWER Body Mass Index 27.34 08/31/2023 3:28 PM BUNG SEWER Plan of Treatment Health Maintenance Due Date Last Done Comments Depression Screening 1945 DTaP/Tdap/Td Vaccine (1 - Tdap) 1954 Hepatitis B Screening 1961 Pneumococcal vaccine 65+ (1 of 1 - PCV) 2008 Well Visit 65+ 2008 Zoster Vaccine (2 of 3) 01/05/2013 11/10/2012 Covid-19 Vaccine (5 - 4-2 5 season) 2024 12/07/2021, 06/19/2021, 11/03/2020, Additional history exists Influenza Vaccine (#1) 2024 , 04/25/2020, 04/11/2019, Additional history exists Fall Risk Assessment 09/16/2024 09/16/2023, 05/28/2022, 05/22/2022 Abdominal Aortic Aneurysm (A AA) Screen Completed 04/10/2021 Procedures Procedure Name Priority Date/Time Associated Diagnosis Comments PSA, TOTAL AND FREE Routine 07/18/2024 1:02 PM BUNG SEWER Prostate CA (HCC) CT CHEST W CONTRAST Schedule Routine, Read Routine (OP Routine) 07/11/2024 7:29 AM BUNG SEWER Laryngeal cancer (CMS/HCC) (HCC) CT SOFT TISSUE NECK W CONTRAST Schedule Routine, Read Routine (OP Routine) 07/11/2024 7:29 AM BUNG SEWER Laryngeal cancer (CMS/HCC) (HCC) POCT CREATININE - DEVICE Routine 07/11/2024 6:[address] ABDOMEN PELVIS W CONTRAST Schedule Routine, Read Routine (OP Routine) 04/10/2021 10:22 AM CDT Malignant neoplasm of prostate (CMS/HCC) (HCC) from Last 3 Months or Most Recently Relevant to Health Maintenance Results * (ABNORMAL) PSA, total and free (07/18/2024 1:02 PM BUNG SEWER) PSA 1.7 < OR = 4.0 ng/mL [facility] PSA, free 0.2 ng/mL [facility] PSA, free 12(L) >25 % (calc) [facility] Comment: PSA(ng/mL) ?Free PSA(%) ? Estimated(x) Probability ? of Cancer(as%) 0-2.5 ?(*) ? Approx. 1 2.6-4.0(1) ? 0-27(2) ? 24(3) 4.1-10(4) ?0-10 ?56 ? 11-15 ? 28 ? 16-20 ? 20 ? 21-25 ? 16 ? >or =26 ? 8 >10(+) ? N/A ?>50 References:(1)Avery mena al.:Urology 60: 469-474 (2002) ? (2)Avery mena al.:J.Urol 168: 922-925 (2002) ?Free PSA(%) ?? Sensitivity(%) ??Specificity(%) ?< or = 25 ?85 ?19 ?< or = 30 ?93 ? 9 ? (3)Avery et al.:TIFFANIE 277: 0625-4586 (1996) ? (4)Avery et al.:TIFFANIE 279: 7113-5691 (1997) (x)These estimates vary with age, ethnicity, [...] mind. PSA was performed using the Steven Denton Immunoassay method. Values obtained from different assay methods cannot be used interchangeably. PSA levels, regardless of value, should not be interpreted as absolute evidence of the presence or absence of disease. Blood 07/18/2024 1:02 PM BUNG SEWER 07/18/2024 1:02 PM BUNG SEWER Serena Caban OIL HEATERMAN LAB BLOOD ORDERABLES Final Result [facility] [address] [place] [address] * CT Chest W Contrast (07/11/2024 7:29 AM BUNG SEWER) Anatomical Region Laterality Modality Body N/A Computed Tomogra phy 07/11/2024 7:35 AM BUNG SEWER Impressions 07/11/2024 7:35 AM BUNG SEWER 1. ??No specific CT evidence of metastatic disease in the chest Electronically signed by: Matt Tristan M.D. Narrative 07/11/2024 7:35 AM BUNG SEWER EXAMINATION: CT of the chest with intravenous [...] Soft Tissue W Contrast (07/11/2024 7:29 AM BUNG SEWER) Anatomical Region Laterality Modality Head and Neck N/A Computed Tomogra phy 07/11/2024 9:44 AM BUNG SEWER Impressions 07/11/2024 9:44 AM BUNG SEWER No discrete mass in the larynx or vocal cord to suggest recurrence. No cervical lymphadenopathy. Electronically signed by: Jerome Higginbotham MD, PHD Narrative 07/11/2024 9:44 AM BUNG SEWER EXAMINATION: CT of the neck with contrast [...] are normal. The limited view of the [place] is unremarkable. The visualized portions [...] are normal. The limited view of the [place] is unremarkable. The visualized portions of the orbits are normal. Severe cervical spondylosis.. Limited examination of the superior thorax shows no pulmonary infiltrate, suspicious nodules, or pleural effusions. Atherosclerosis of the carotid bifurcation. IMPRESSION: No discrete mass in the larynx or vocal cord to suggest recurrence. No cervical lymphadenopathy. Electronically signed by: Jerome Higginbotham MD, PHD us Jimmy Canseco MD IMG CT PROCEDURES Ene l Result * POCT creatinine (07/11/2024 6:58 AM BUNG SEWER) Creatinine POC 1.2 0.7 - 1.3 mg/dL Blood 07/11/2024 6:58 AM BUNG SEWER 07/11/2024 6:58 AM BUNG SEWER Franki Chan MD LAB POCT ORDERABLES - DEV ICE Final Result [facility] Department [place] [address] * CT Abdomen Pelvis W Contrast (04/10/2021 [...] signed by: Reji Ocasio M.D. Serena Caban OIL HEATERMAN IMG CT PROCEDURES Final Res ult from Last 3 Months or Most Recently Relevant to Health Maintenance Insurance [employer] MEDICARE [employer] CHOICE MEDICARE PPO [employer] CHOICE MEDICARE PPO Care Teams Curber Relationship Specialty Start Date End Date Franki Chan MD [address] [address] PCP - General 11/24/16 Serena Caban OIL HEATERMAN [address] [facility] [address] [place] [address] Nurse Practitioner Radiation Oncology 09/25/20 Luis Au MD [address] [place] [address] Radiation Oncologist Radiation Oncology 05/28/22 Jimmy Canseco MD [address] [place] [address] Referring Physician Otolaryngology 05/28/22
--- NOTE | 2024-09-13 13:50 | ED_ITS ---
HPI - General Adult General Chief complaint: Urogenital-Male Stated complaint: hematuria Time Seen by Provider: 09/13/24 13:00 History of Present Illness HPI narrative: This is an 79-year-old male presenting with hematuria. Started this morning. It is painless. It does not have dysuria urgency or frequency. He has had this occurred in the past sinus due to prostate bleeding. He is not on blood thinners. Related Data Home Medications ?Medication ?Instructions ?Recorded ?Confirmed ?Last Taken ?Type cyanocobalamin (vitamin B-12) 2,500 mcg sublingual DAILY 01/25/20 06/29/24 02/23/22 History 2,500 mcg sublingual tablet (Vitamin B-12) vitamins A,C,G-[id number] 2,148 2 tablet PO QNOON 02/20/22 06/29/24 02/23/22 History mcg-113 mg-45 mg-17.4 mg tablet (Eye Multivitamin) guaifenesin 1,200 mg tablet, 1,200 mg PO BID 06/29/24 06/29/24 Unknown History extended release 12 hr (Mucinex) Allergies Allergy/AdvReac Type Severity Reaction Status Date / Time No Known Allergies Allergy Unknown Verified 08/01/23 10:59 [facility] Past Medical History Medical History Chronic cough Chest x-ray 06/29/2024 with old granulomatous changes and atelectasis at lung bases. At low risk for fall BMI 27.0-27.9,adult Gross hematuria (09/29/23) COVID-19 (~07/25/23) Tested positive 07/28/2023. 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 Cirrhosis of liver (~06/2021) nodularity of the surface of the liver on CT of the abdomen and pelvis on 07/14/2021 with past history of alcoholism and normal liver function cu rrently. Normal liver enzymes with AST 16 and ALT 13 on 01/20/2022. Alcoholism in recovery quit drinking 07/18/1983. Overweight (BMI 25.0-29.9) Chronic low back pain without sciatica BMI 29.0-29.9,adult UTI (urinary tract infection) Cataracts, bilateral BMI 28.0-28.9,adult Renal insufficiency (02/12/21) mild renal insufficiency with BUN 28 and creatinine 1.25 with GFR 55 on . Normal renal function 01/20/2022 with BUN 18, creatinine 1.02, GFR 70 with urinalysis normal and urine microalbumin ratio of 9 on 01/20/2022. BUN 22, creatinine 1.11, GFR 70 on 08/19/2022. BUN 25, creatinine 1.11 with GFR 70 on 03/03/2023. Hypersomnia Type 2 diabetes mellitus with mild nonproliferative diabetic retinopathy without macular edema, bilateral (12/18/20) Dr. Fernandez. mild retinopathy 04/22/2022. Mild nonproliferative retinopathy on 04/14/2023. Fasting glucose 98 with hemoglobin A1c 5.4 on 09/01/2023.Mild nonproliferative diabetic retinopathy on 10/19/2023. nonproliferative diabetic retinopathy on 04/28/2024. Change in stool Constipation Polyp of colon Family History Family History Mother Patient's mother is Father Patient's father is Social History Social History Smoking status: Never smoker Alcohol intake: former Alcohol use details: RECOVERING ALCOHOLIC-LAST DRINK 1982 Substance use: never Substance use type: does not use Lack of Transportation: No Lack of Food: Never True Current Housing: I Have Housing Concerned About Future Housing: No Difficulty Paying Gas/Electric Bills: No Difficulty Paying for Meds: No Currently Unemployed: No Education: High School Diploma/GED Difficulty w/ Childcare or Family Care: No Living arrangements: with family Gender identity (if verbalized by the patient): Male Sexual Orientation (if Verbalized by the Patient): Straight or Heterosexual Spiritual care concerns: No Exam Narrative: -Course: 79-year-old male history of pr ostate bleeding presenting with hematuria. Patient is able urinate without difficulty. No signs of UTI symptoms fevers, dysuria urgency frequency suprapubic pain or flank pain. Urine is crow blood but he is able to empty his bladder without retention. Patient be discharged follow-up with urology. -DDX includes but is not limited to: He maturia, UTI Course Vital Signs Vital signs: Vital Signs Temperature 97.7 F 09/13/24 10:26 Pulse Rate 96 09/13/24 10:26 Respiratory Rate 18 09/13/24 10:26 Blood Pressure 144/79 H 09/13/24 10:26 Pulse Oximetry 97 09/13/24 10:26 Temperature 97.7 F 09/13/24 10:26 Pulse Rate 96 09/13/24 10:26 Respiratory Rate 18 09/13/24 10:26 Blood Pressure 144/79 H 09/13/24 10:26 Pulse Oximetry 97 09/13/24 10:26 Medical Decision Making MDM Narrative Medical decision making narrative: -Course: 79-year-old male history of prostate bleeding presenting with hematuria. Patient is able urinate without difficulty. No signs of UTI symp toms fevers, dysuria urgency frequency suprapubic pain or flank pain. Urine is crow blood but he is able to empty his bladder without retention. We discussed antibiotics versus no antibiotics in the patient would prefer them just to be safe. He will call his primary care physician to see culture results. Patient be discharged follow-up with urology. -DDX includes but is not limited to: Hematuria, UTI Vital Signs Vital Signs: Vital Signs Temperature 97.7 F 09/13/24 10:26 Pulse Rate 96 09/13/24 10:26 Respiratory Rate 18 09/13/24 10:26 Blood Pressure 144/79 H 09/13/24 10:26 Pulse Oximetry 97 09/13/24 10:26 Temperature 97.7 F 09/13/24 10:26 Pulse Rate 96 09/13/24 10:26 Respiratory Rate 18 09/13/24 10:26 Blood Pressure 144/79 H 09/13/24 10:26 Pulse Oximetry 97 09/13/24 10:26 Lab Data Labs: Lab Results 09/13/24 Range/Units 14:03 Urine Color Red H (Yellow) Urine Appearance Turbid H (Clear) Urine pH TNP Ur Specific Rosamond TNP Urine Protein TNP Urine Glucose (UA) TNP Urine Ketones TNP Ur Blood (Man) TNP Urine Nitrate TNP Urine Bilirubin TNP Urine Urobilinogen TNP Leukocyte Esterase Rfl TNP Urine RBC >100 H (0-2) /hpf Urine WBC >100 H (0-3) /hpf Urine Bacteria 3+ H /hpf Discharge Plan Discharge Clinical Impression: Hematuria Patient Disposition: Home, Self-Care Condition: Stable Instructions: Antibiotic Form, Hematuria (ED) Additional Instructions: You were seen in the emergency department for hematuria. Please follow-up with Dr. Ocampo. Return if you develop fevers, burning when you urinate or increased urinary urgency or frequency. Return if you are unable urinate you develop lower abdominal pain. Patient Language: Australian Prescriptions: New sulfamethoxazole-trimethoprim 800-160 mg tablet 1 tablet PO Q12H Qty: 10 0RF No Action fluticasone propionate [Flonase Allergy Relief] 50 mcg/actuation spray,suspension 1 spray intranasal BID Qty: 16 11RF Rx Instructions: administer into each nostril guaifenesin [Mucinex] 1,200 mg tablet extended release 12hr 1,200 mg PO BID cyanocobalamin (vitamin B-12) [Vitamin B-12] 2,500 mcg Tablet, Sublingual 2,500 mcg SUBLINGUAL DAILY Eye Multivitamin 2,148 mcg-113 mg-45 mg-17.4mg Tablet 2 tablet PO QNOON Rx Instructions: administer with AM and PM meals levothyroxine 88 mcg tablet 88 mcg PO DAILY Qty: 90 3RF metformin 500 mg tablet extended release 24 hr 1,000 mg PO QPM Qty: 180 3RF simvastatin 40 mg tablet 40 mg PO HS Qty: 90 3RF Follow-up/Referrals: Franki Chan MD [Primary Care Provider] - iSmon Ocampo MD [Physician] - 1 Week (hematuria )
--- OUTSIDE RECORDS SUMMARY | 2024-09-13 13:58 | XMS_ITS | Referral Summary ---
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) 07/11/2024 6:19 AM HARDNESS INSPECTOR - 07/11/2024 11:59 PM HARDNESS INSPECTOR Hospital Encounter [facility] [address] [place] [address] Jimmy Canseco MD Laryngeal cancer (CMS/HCC) (HCC) [...] 1 tablet (88 mcg total) by mouth electronic musical instrument repairer before breakfast 1 Active cyanocobalamin, vitamin B-12, [...] (05/20/2022): Added automatically from request for surgery [id number] Malignant neoplasm of prostate 03/08/1999 Cancer Staging:Clinical [...] on file Legal Sex Male 4:32 PM HARDNESS INSPECTOR Gender Identity Not on file Sexual Orientation Not on file Last Filed Vital Signs Vital Sign Reading Time Taken Comments Blood Pressure 148/110 09/16/2023 10:00 AM HARDNESS INSPECTOR Pulse 87 09/16/2023 10:00 AM HARDNESS INSPECTOR Temperature 36.5 ??C (97.7 ??F) 09/16/2023 10:[address] Respiratory Rate 18 09/16/2023 10:00 AM HARDNESS INSPECTOR Oxygen Saturation 97% 09/16/2023 10:00 AM HARDNESS INSPECTOR Inhaled Oxygen Concentration - - Weight 88.9 kg (196 lb) 07/11/2024 8:05 AM HARDNESS INSPECTOR Height 180.3 cm (5' 11 ) 08/31/2023 3:28 PM HARDNESS INSPECTOR Body Mass Index 27.34 08/31/2023 3:28 PM HARDNESS INSPECTOR Plan of Treatment Not on file Procedures Procedure Name Priority Date/Time Associated Diagnosis Comments PSA, TOTAL AND FREE Routine 07/18/2024 1:02 PM HARDNESS INSPECTOR Prostate CA (HCC) CT CHEST W CONTRAST Schedule Routine, Read Routine (OP Routine) 07/11/2024 7:29 AM HARDNESS INSPECTOR Laryngeal cancer (CMS/HCC) (HCC) CT SOFT TISSUE NECK W CONTRAST Schedule Routine, Read Routine (OP Routine) 07/11/2024 7:29 AM HARDNESS INSPECTOR Laryngeal cancer (CMS/HCC) (HCC) POCT CREATININE - DEVICE Routine 07/11/2024 6:[address] ABDOMEN PELVIS W CONTRAST Schedule Routine, Read Routine (OP Routine) 04/10/2021 10:22 AM CDT Malignant neoplasm of prostate (CMS/HCC) (HCC) from Last 3 Months or Most Recently Relevant to Health Maintenance Results * (ABNORMAL) PSA, total and free (07/18/2024 1:02 PM HARDNESS INSPECTOR) PSA 1.7 < OR = 4.0 ng/mL [place] [employer] PSA, free 0.2 ng/mL [place] Francisco J PSA, free 12(L) >25 % (calc) [place] Comment: PSA(ng/mL) ?Free PSA(%) ? Estimated(x) Probability [...] ? 9 ? (3)Avery et al.:TIFFANIE 277: 0180-3724 (1996) ? (4)Avery et al.:TIFFANIE 279: 8478-0114 (1997) (x)These estimates vary with age, ethnicity, [...] absence of disease. Blood 07/18/2024 1:02 PM HARDNESS INSPECTOR 07/18/2024 1:02 PM HARDNESS INSPECTOR us Serena Caabn CARBON PAPER MACHINE OPERATOR LAB BLOOD ORDERABLES Final Result [facility] [address] [place] [address] * CT Chest W Contrast (07/11/2024 7:29 AM HARDNESS INSPECTOR) Anatomical Region Laterality Modality Body N/A Computed Tomogra phy 07/11/2024 7:35 AM HARDNESS INSPECTOR Impressions 07/11/2024 7:35 AM HARDNESS INSPECTOR 1. ??No specific CT evidence of metastatic disease in the chest Electronically signed by: Matt Tristan M.D. Narrative 07/11/2024 7:35 AM HARDNESS INSPECTOR EXAMINATION: CT of the chest with intravenous [...] Soft Tissue W Contrast (07/11/2024 7:29 AM HARDNESS INSPECTOR) Anatomical Region Laterality Modality Head and Neck N/A Computed Tomogra phy 07/11/2024 9:44 AM HARDNESS INSPECTOR Impressions 07/11/2024 9:44 AM HARDNESS INSPECTOR No discrete mass in the larynx or vocal cord to suggest recurrence. No cervical lymphadenopathy. Electronically signed by: Jerome Higginobtham MD, PHD Narrative 07/11/2024 9:44 AM HARDNESS INSPECTOR EXAMINATION: CT of the neck with contrast [...] are normal. The limited view of the [place] is unremarkable. The visualized portions of the orbits are normal. Severe cervical spondylosis.. Limited examination of the superior thorax shows no pulmonary infiltrate, suspicious nodules, or pleural effusions. ??Atherosclerosis of the carotid bifurcation. Procedure Note Jerome Higginbotahm MD PhD - 07/11/2024 EXAMINATION: CT of [...] are normal. The limited view of the [place] is unremarkable. The visualized portions [...] Result * POCT creatinine (07/11/2024 6:58 AM HARDNESS INSPECTOR) Creatinine POC 1.2 0.7 - 1.3 mg/dL Blood 07/11/2024 6:58 AM HARDNESS INSPECTOR 07/11/2024 6:58 AM HARDNESS INSPECTOR us Franki Chan MD LAB POCT ORDERABLES - DEV ICE Final Result [facility] Department [place] [address] * CT Abdomen Pelvis W Contrast (04/10/2021 [...] Relevant to Health Maintenance [place] [address] AETNA MEDICARE HUMANA CHOICE MEDICARE PPO [email or web address] CHOICE MEDICARE PPO Care Teams Clinic Physician Director Relationship Specialty Start Date End Date Franki Chan MD [address] [address] PCP - General 11/24/16 Serena Caban NP [address] [facility] [address] LL LL [address] [place] [address] Nurse Practitioner Radiation Oncology 09/25/20 Luis Au MD [address] [facility] [address] [place] [address] Radiation Oncologist Radiation Oncology 05/28/22 Jimmy Canseco MD [address] [place] [address] Referring Physician Otolaryngology 05/28/22
--- OUTSIDE RECORDS SUMMARY | 2024-09-13 13:58 | XMS_ITS | Patient Health Summary ---
Author Organization [facility] Address [address] [place] [address] Care Team Providers Care Behavioral Services Tech Name Role Phone Unavailable Primary Care Provider Unavailabl e Note from [facility],non-owned Affiliates and Associated Physician Practices is amultiple site organization consisting of ambulatory clinics and hospital sitesin [place], [place], [place] and [place]. This disclosure is being madepursuant to the Care Everywhere program and may not contain all information available regarding this patient. Last updated 18.[facility] Social History Tobacco Use Types Packs/Day Years Used Date Smoking Tobacco: Never Assessed Sex and Gender Information Value Date Recorded Sex Assigned at Not on file Gender Identity Not on file Sexual Orientation Not on file Procedures * DERMATOPATHOLOGY(Performed 08/19/2022) * DERMATOPATHOLOGY(Performed 01/08/2022) * DERMATOPATHOLOGY(Performed 08/20/2011) Results * DERMATOPATHOLOGY (08/19/2022 12:00 AM RATTLESNAKE FARMER) Only the most recent of3 resultswithin the time period is included. Case Report Dermatopathology Report ? Case: [id number] ? Authorizing Provider: ??Torin Ontiveros MD ?Collected: ? 08/19/2022 12:00 AM ? Ordering Location: ? [facility] Care Derm[facility] Lab ?Received: ?08/20/2022 02:01 PM ? Pathologist: ? Kristi Molina MD ? Specimen: ?Skin, left lat back ? 3 4:10 PM [facility] DERMATOPATHOLOGY LABORATORY Final Diagnosis Specimen A. 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 Eczema vs. Other 3 4:10 PM [facility] DERMATOPATHOLOGY LABORATORY Gross Description Specimen A: Received is one formalin filled container labeled with the patient's name and designated left lat back. The specimen consists of a punch biopsy measuring 4x4x5 mm. Jar 0. 3 4:10 PM [facility] DERMATOPATHOLOGY LABORATORY Microscopic Description Specimen A. SKIN, [...] phase of bullous pemphigoid. 3 4:10 PM [facility] DERMATOPATHOLOGY LABORATORY Disclaimer An external and internal positive and negative controls are appropriate for the histochemical, immunohistochemical and immunofluorescence stain(s) in this case (if any), except where stated explicitly. The performance characteristics of the stain(s) cited in this report were developed and its performance characteristic determined by the Dermatopathology Laboratory at [facility], directed by Dr. Meliton Vo. These tests need not be, and therefore are not, approved by the [place] Food and Drug Administration. The tests are used for clinical purposes. Billing Codes Specimen Charges Stain Charges 10644 1 68798 1 3 4:10 PM RATTLESNAKE FARMER DERMATOPATHOLOGY LABORATORY Embedded Images 3 4:10 PM RATTLESNAKE FARMER DERMATOPATHOLOGY LABORATORY Pathology/Cytolog y TISSUE SPECIMEN FROM SKIN / Unknown 08/19/2022 08/20/2022 2:01 PM RATTLESNAKE FARMER Torin Ontiveros MD LAB - PATHOLOGY/CYTO LOGY ORDERABLES DERMATOPATHOLOGY LABORATORY [facility] - Department of Dermatology [address], [address] [phone]
--- OUTSIDE RECORDS SUMMARY | 2024-09-13 13:58 | XMS_ITS | Clinical Summary ---
Author Organization [facility] Address [address] [place] [address]. [place], [place] [address] [place] [address] Care Team Providers Care Publications Production Supervisor Name Role Phone Franki Chan MD Primary Care Provider [phone] Allergies Active Allergy Reactions Criticality Noted Date [...] on file Legal Sex Male 1:00 PM BREAKER LAYER Gender Identity Not on file Sexual Orientation Not on file Last Filed Vital Signs Vital Sign Reading Time Taken Comments Blood Pressure - - Pulse - - Temperature - - Respiratory Rate - - Oxygen Saturation - - Inhaled Oxygen Concentration - - Weight 93.9 kg (207 lb) 07/08/2021 10:34 AM BREAKER LAYER Height 177.8 cm (5' 10 ) 07/08/2021 10:34 AM BREAKER LAYER Body Mass Index 29.7 07/08/2021 10:34 AM BREAKER LAYER Plan of Treatment Health Maintenance Due Date [...] complete this topic Insurance AETNA Care Teams Publications Production Supervisor Relationship Specialty Start Date End Date Franki Chan MD [address] [place] [address] [address] [place] [address] PCP - General FAMILY PRACTICE 07/05/21
--- OUTSIDE RECORDS SUMMARY | 2024-09-13 13:58 | XMS_ITS | Clinical Summary ---
Author Organization [facility] Virtual Care Address [facility] [place] [address] Phone Care Team Providers Care Surgical Specialist Name Role Phone Franki Chan MD Primary Care Provider [phone] Serena Caban NP Unavailable [phone] Luis Au MD Unavailable Jimmy Canseco MD Unavailable Allergies Active Allergy Reactions Criticality Noted Date [...] 1 tablet (88 mcg total) by mouth blindstitch hemmer before breakfast 1 Active cyanocobalamin, vitamin B-12, [...] (05/20/2022): Added automatically from request for surgery [id number] Malignant neoplasm of prostate 03/08/1999 Cancer Staging:Clinical stage from 03/08/1999:Stage III(T3a, N0, M0, G1) - Signed by Serena Caban NP on 06/08/2018 Encounters Date Type Department Care Team Description 07/11/2024 8:20 AM APARTMENT LEASING MANAGER Office Visit [facility] Department of Otolaryngology Head-Neck Division [address] [facility] Floor [address] [place] [address] Rocio Lazo PA 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) 07/11/2024 6:19 AM APARTMENT LEASING MANAGER - 07/11/2024 11:59 PM APARTMENT LEASING MANAGER Hospital Encounter [facility]) [address] [place] [address] Jimmy Canseco MD Laryngeal cancer (CMS/HCC) (HCC) [...] on file Legal Sex Male 4:32 PM APARTMENT LEASING MANAGER Gender Identity Not on file Sexual Orientation Not on file Obstetrics History Last Filed Vital Signs Vital Sign Reading Time Taken Comments Blood Pressure 148/110 09/16/2023 10:00 AM APARTMENT LEASING MANAGER Pulse 87 09/16/2023 10:00 AM APARTMENT LEASING MANAGER Temperature 36.5 ??C (97.7 ??F) 09/16/2023 10:[address] Respiratory Rate 18 09/16/2023 10:00 AM APARTMENT LEASING MANAGER Oxygen Saturation 97% 09/16/2023 10:00 AM APARTMENT LEASING MANAGER Inhaled Oxygen Concentration - - Weight 88.9 kg (196 lb) 07/11/2024 8:05 AM APARTMENT LEASING MANAGER Height 180.3 cm (5' 11 ) 08/31/2023 3:28 PM APARTMENT LEASING MANAGER Body Mass Index 27.34 08/31/2023 3:28 PM APARTMENT LEASING MANAGER Plan of Treatment Health Maintenance Due Date [...] TOTAL AND FREE Routine 07/18/2024 1:02 PM APARTMENT LEASING MANAGER Prostate CA (HCC) CT CHEST W CONTRAST Schedule Routine, Read Routine (OP Routine) 07/11/2024 7:29 AM APARTMENT LEASING MANAGER Laryngeal cancer (CMS/HCC) (HCC) CT SOFT TISSUE NECK W CONTRAST Schedule Routine, Read Routine (OP Routine) 07/11/2024 7:29 AM APARTMENT LEASING MANAGER Laryngeal cancer (CMS/HCC) (HCC) POCT CREATININE - DEVICE Routine 07/11/2024 6:58 AM APARTMENT LEASING MANAGER CT ABDOMEN PELVIS W CONTRAST Schedule Routine, Read Routine (OP Routine) 04/10/2021 10:22 AM CDT Malignant neoplasm of prostate (CMS/HCC) (HCC) from Last 3 Months or Most Recently Relevant to Health Maintenance Results * (ABNORMAL) PSA, total and free (07/18/2024 1:02 PM APARTMENT LEASING MANAGER) PSA 1.7 < OR = 4.0 ng/mL [...] ? 9 ? (3)Avery et al.:TIFFANIE 277: 5783-8063 (1996) ? (4)Avery et al.:TIFFANIE 279: 2705-0694 (1997) (x)These estimates vary with age, ethnicity, [...] mind. PSA was performed using the Steven Drain Immunoassay method. Values obtained from different assay methods cannot be used interchangeably. PSA levels, regardless of value, should not be interpreted as absolute evidence of the presence or absence of disease. Blood 07/18/2024 1:02 PM APARTMENT LEASING MANAGER 07/18/2024 1:02 PM APARTMENT LEASING MANAGER Serena Caban GOODWILL REPRESENTATIVE LAB BLOOD ORDERABLES Final Result [facility] [address] [place] [address] * CT Chest W Contrast (07/11/2024 7:29 AM APARTMENT LEASING MANAGER) Anatomical Region Laterality Modality Body N/A Computed Tomogra phy 07/11/2024 7:35 AM APARTMENT LEASING MANAGER Impressions 07/11/2024 7:35 AM APARTMENT LEASING MANAGER 1. ??No specific CT evidence of metastatic disease in the chest Electronically signed by: Matt Tristan M.D. Narrative 07/11/2024 7:35 AM APARTMENT LEASING MANAGER EXAMINATION: CT of the chest with intravenous [...] Soft Tissue W Contrast (07/11/2024 7:29 AM APARTMENT LEASING MANAGER) Anatomical Region Laterality Modality Head and Neck N/A Computed Tomogra phy 07/11/2024 9:44 AM APARTMENT LEASING MANAGER Impressions 07/11/2024 9:44 AM APARTMENT LEASING MANAGER No discrete mass in the larynx or vocal cord to suggest recurrence. No cervical lymphadenopathy. Electronically signed by: Jerome Higginbotham MD, PHD Narrative 07/11/2024 9:44 AM APARTMENT LEASING MANAGER EXAMINATION: CT of the neck with contrast [...] are normal. The limited view of the [place] is unremarkable. The visualized portions [...] are normal. The limited view of the [place] is unremarkable. The visualized portions [...] Result * POCT creatinine (07/11/2024 6:58 AM APARTMENT LEASING MANAGER) Creatinine POC 1.2 0.7 - 1.3 mg/dL Blood 07/11/2024 6:58 AM APARTMENT LEASING MANAGER 07/11/2024 6:58 AM APARTMENT LEASING MANAGER Franki Chan MD LAB POCT ORDERABLES - DEV ICE Final Result [facility] [place] [address] * CT Abdomen Pelvis W Contrast (04/10/2021 [...] signed by: Reji Ocasio M.D. Serena Caban GOODWILL REPRESENTATIVE IMG CT PROCEDURES Final Res ult from Last 3 Months or Most Recently Relevant to Health Maintenance Insurance [employer] MEDICARE [employer] CHOICE MEDICARE PPO HUMANA CHOICE MEDICARE PPO Care Teams Surgical Specialist Relationship Specialty Start Date End Date Franki Chan MD [address] [address] PCP - General 11/24/16 Serena Caban GOODWILL REPRESENTATIVE [address] [facility] [address] [place] [address] Nurse Practitioner Radiation Oncology 09/25/20 Luis Au MD [address] [place] [address] Radiation Oncologist Radiation Oncology 05/28/22 Jimmy Canseco MD [address] [place] [address] Referring Physician Otolaryngology 05/28/22
--- OUTSIDE RECORDS SUMMARY | 2024-09-13 13:58 | XMS_ITS | Referral Summary ---
Author Organization [facility] Address [address] [place] [address] Care Team Providers Care Counter Pocket Trimmer Name Role Phone Unavailable Primary Care Provider Unavailabl e Source Comments [facility],non-owned Affiliates and Associated Physician Practices is amultiple site organization consisting of ambulatory clinics and hospital sitesin [place], [place], [place] and [place]. This disclosure is being madepursuant to the Care Everywhere program and may not contain all information available regarding this patient. Last updated 18.[facility] Social History Tobacco Use Types Packs/Day Years Used Date Smoking Tobacco: Never Assessed Sex and Gender Information Value Date Recorded Sex Assigned at Not on file Gender Identity Not on file Sexual Orientation Not on file Plan of Treatment Not on file
--- OUTSIDE RECORDS SUMMARY | 2024-09-13 13:58 | XMS_ITS ---
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
--- OUTSIDE RECORDS SUMMARY | 2024-09-13 13:58 | XMS_ITS | Encounter Summary ---
Author Organization [facility] Address [address] [facility] [place] [address] Care Team Providers Care Die Barber Name Role Phone Unavailable Primary Care Provider Unavailabl e Encounter Details Date Type Department Care Team (Late st Contact Info) Description 01/09/2022 Lab Requisition [facility] Care DermPath Lab [address] [facility] [address] [id number] Torin Ontiveros MD [address] [place] [address] Social History Tobacco Use Types Packs/Day [...] CDT) Case Report Dermatopathology Report ? Case: [id number] ? Authorizing Provider: ??Torin Ontiveros MD ?Collected: [...] specimen consists of a shave biopsy measuring [id number]. Jar 0. 2 5:30 PM CDT DERMATOPATHOLOGY [...] characteristic determined by the Dermatopathology Laboratory at [facility], directed by Dr. Meliton Vo. These tests need not be, and therefore are not, approved by the [place] Food and Drug Administration. The tests are used for clinical purposes. Billing Codes Specimen Charges Stain Charges 89956 1 2 5:30 PM CDT DERMATOPATHOLOGY LABORATORY Embedded Images 2 5:30 PM CDT DERMATOPATHOLOGY LABORATORY Pathology/Cytolog y TISSUE SPECIMEN FROM SKIN / Unknown 01/08/2022 01/09/2022 1:06 PM CDT Torin Ontiveros MD LAB - PATHOLOGY/CYTO LOGY ORDERABLES DERMATOPATHOLOGY LABORATORY [facility] - Department of Dermatology [facility] Medicine [address] [place] [address], [address]rd Floor [address] [phone] documented in this encounter Visit Diagnoses Not on filedocumented in this encounter
--- OUTSIDE RECORDS SUMMARY | 2024-09-13 13:58 | XMS_ITS | Encounter Summary ---
Author Organization [facility] Address [address] [facility] [place] [address] Care Team Providers Care Aircraft Layout Worker Name Role Phone Unavailable Primary Care Provider Unavailabl e Encounter Details Date Type Department Care Team (Late st Contact Info) Description 08/20/2022 Lab Requisition [facility] [address] [facility] [place] [id number] Torin Ontiveros MD [address] [place] [id number] Social History Tobacco Use Types Packs/Day Years [...] Comments DERMATOPATHOLOGY Routine 08/19/2022 12:0 0 AM THERAPY TECH documented in this encounter Results * DERMATOPATHOLOGY (08/19/2022 12:00 AM THERAPY TECH) Case Report Dermatopathology Report ? Case: [id number] ? Authorizing Provider: ??Torin Ontiveros MD ?Collected: ? 08/19/2022 12:00 AM ? Ordering Location: ? [facility] ?Received: ?08/20/2022 02:01 PM ? Pathologist: ? Kristi Molina MD ? Specimen: ?Skin, left lat back ? 3 4:10 PM [facility] DERMATOPATHOLOGY LABORATORY Final Diagnosis Specimen A. 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 Eczema vs. Other 3 4:10 PM [facility] DERMATOPATHOLOGY LABORATORY Gross Description Specimen A: Received is one formalin filled container labeled with the patient's name and designated left lat back. The specimen consists of a punch biopsy measuring 4x4x5 mm. Jar 0. 3 4:10 PM [facility] DERMATOPATHOLOGY LABORATORY Microscopic Description Specimen A. [...] phase of bullous pemphigoid. 3 4:10 PM [facility] DERMATOPATHOLOGY LABORATORY Disclaimer An external and internal positive and negative controls are appropriate for the histochemical, immunohistochemical and immunofluorescence stain(s) in this case (if any), except where stated explicitly. The performance characteristics of the stain(s) cited in this report were developed and its performance characteristic determined by the Dermatopathology Laboratory at [facility], directed by Dr. Meliton Vo. These tests need not be, and therefore are not, approved by the [place] Food and Drug Administration. The tests are used for clinical purposes. Billing Codes Specimen Charges Stain Charges 18460 1 79663 1 3 4:10 PM THERAPY TECH DERMATOPATHOLOGY LABORATORY Embedded Images 3 4:10 PM THERAPY TECH DERMATOPATHOLOGY LABORATORY Pathology/Cytolog y TISSUE SPECIMEN FROM SKIN / Unknown 08/19/2022 08/20/2022 2:01 PM THERAPY TECH Torin Ontiveros MD LAB - PATHOLOGY/CYTO LOGY ORDERABLES DERMATOPATHOLOGY LABORATORY [facility] - Department of Dermatology [facility] [address] [place] [address], [address] [phone] documented in this encounter Visit Diagnoses Not on filedocumented in this encounter
--- OUTSIDE RECORDS SUMMARY | 2024-09-13 13:58 | XMS_ITS | Clinical Summary ---
Author Organization [facility] Address [address] [place] [address] Care Team Providers Care Artificial Marble Worker Name Role Phone Unavailable Primary Care Provider Unavailabl e Source Comments [facility],non-owned Affiliates and Associated Physician Practices is amultiple site organization consisting of ambulatory clinics and hospital sitesin [place], [place], [place] and [place]. This disclosure is being madepursuant to the Care Everywhere program and may not contain all information available regarding this patient. Last updated 18.[facility] [email or web address] Social History Tobacco Use Types Packs/Day Years [...] age [place] [address]
[2024-09-13 14:35] LABS: Add Urine Microscopic? YES; Color Urine Red (Yellow)
[2024-09-13 15:29] LABS: Appearance Urine Turbid (Clear); RBC Urine >100 /hpf (0-2)
[2024-09-13 15:33] LABS: WBC Urine >100 /hpf (0-3)
[2024-09-13 15:34] LABS: Bacteria Urine 3+ /hpf
[2024-09-13 16:50] VITALS: BP 131/80; PULSE 82; RESP 16; O2SAT 99
== END 2024-09-13 16:50 | disposition home or self-care (01) ==
PROVIDERS: Emergency Provider Emergency Medicine; PCP Family Medicine
DX: R31.9 Hematuria, unspecified (principal); G89.29 Other chronic pain; Z87.440 Personal history of urinary (tract) infections; E11.9 Type 2 diabetes mellitus without complications
CPT/HCPCS: 81001; 87086; 87186; 99283